=== PATIENT | male | born 2000 | race Caucasian/White ===

== ENCOUNTER 2020-03-22 17:16 | Emergency (ER) | payer OTHER, SELFPAY ==
[2020-03-22 17:18] VITALS: BP 96/61; PULSE 82; RESP 18; TEMP 36.6; O2SAT 100; BMI 23.8
--- NOTE | 2020-03-22 18:19 | CT_ITS ---
EXAMINATION: CT HEAD WITHOUT CONTRAST CT CERVICAL SPINE WITHOUT CONTRAST CLINICAL INFORMATION: EtOH. Unknown head hit. COMPARISON: CT head and cervical spine from 12/24/2019. TECHNIQUE: Contiguous axial imaging was performed from the skull base to vertex without intravenous administration of contrast. Contiguous axial imaging was performed from the upper chest through the skull base without intravenous administration of contrast. Coronal and sagittal reformats were obtained at the acquisition workstation. This CT examination was performed using dose optimization techniques as appropriate, variously including the following: *Automated exposure control. *Adjustment of mA and/or kV according to patient size (this includes techniques or standardized protocols for targeted exams where dose is matched to indication/reason for exam; i.e. extremities or head). *Use of iterative reconstruction technique. DLP: 1296 mGy-cm FINDINGS: Head: There is no evidence of acute intracranial hemorrhage or edematous territorial infarction. There is no abnormal attenuation within the brain parenchyma. Reyes-white matter differentiation is preserved. The ventricles are normal in size and configuration. No evidence for obstructive hydrocephalus. No abnormal mass effect or midline shift. No extra-axial fluid collections. No acute soft tissue or osseous abnormalities. The mastoid air cells and paranasal sinuses are clear. Cervical Spine: The cervical spine is held with right convex curvature. Reversal the normal cervical lordosis. Rightward rotary subluxation of C1 on C2. Otherwise, the atlantooccipital and atlantoaxial articulations remain well aligned. No evidence of acute fracture or subluxation. The vertebral body heights and disc spaces are maintained. There is no prevertebral soft tissue swelling. The thyroid gland and remaining cervical soft tissues are normal in appearance. The lung apices demonstrate no abnormalities. IMPRESSION: 1. No evidence of acute intracranial hemorrhage or edematous territorial infarction. 2. No evidence of acute fracture or traumatic subluxation of the cervical spine.
--- NOTE | 2020-03-22 18:28 | ED.ALCOHOL ---
HPI - Alcohol General Chief Complaint: ETOH/Substance Use <ROWENA Slade - Last Filed: 03/23/20 00:35> Stated Complaint: overdose <ROWENA Slade - Last Filed: 03/23/20 00:35> Time Seen by Provider: 03/22/20 18:14 <ROWENA Slade - Last Filed: 03/23/20 00:35> Source: EMS <ROWENA Slade - Last Filed: 03/23/20 00:35> Mode of arrival: EMS <ROWENA Slade - Last Filed: 03/23/20 00:35> History of Present Illness HPI narrative: 19-year-old male with a past medical history of alcohol abuse / dependence BIBA s/p found lying in a yard unresponsive with multiple empty nip bottles around him. unknown head trauma /fall or if additional substances abused history unobtainable at this time due to patient's intoxication <ROWENA Slade - Last Filed: 03/23/20 00:35> MD complaint: alcohol intoxication, alcohol withdrawal and alcohol dependence <ROWENA Slade - Last Filed: 03/23/20 00:35> Related Data Allergies/Adverse Reactions: Allergies Allergy/AdvReac Type Severity Reaction Status Date / Time Unable to Assess Allergy Unverified 03/22/20 18:19 <ROWENA Slade - Last Filed: 03/23/20 00:35> Review of Systems Review of Systems: Yes Unobtainable due to mental status ( intoxication) <ROWENA Slade - Last Filed: 03/23/20 00:35> FORMERLY [facility] Past Medical History Source: old records reviewed <ROWENA Slade - Last Filed: 03/23/20 00:35> Social History Social History: Social History Advance Directives: No Advance Directives Information Provided: No <ROWENA Slade - Last Filed: 03/23/20 00:35> Physical Exam Vital Signs: Vital Signs: Vital Signs Temp Pulse Resp BP Pulse Ox 03/22/20 22:00 98.0 F 70 20 110/60 97 03/22/20 20:25 97.5 F 74 20 101/45 L 97 03/22/20 19:58 75 16 102/47 L 100 03/22/20 17:18 98 F 82 18 96/61 100 Body Mass Index 23.8 <ROWENA Slade - Last Filed: 03/23/20 00:35> Vital Signs: Vital Signs Temp Pulse Resp BP Pulse Ox 03/22/20 22:00 98.0 F 70 20 110/60 97 03/22/20 20:25 97.5 F 74 20 101/45 L 97 03/22/20 19:58 75 16 102/47 L 100 03/22/20 17:18 98 F 82 18 96/61 100 Body Mass Index 23.8 <Krystal Angel MD - Last Filed: 03/23/20 03:18> Const: Other: ETOH odor on breath <ROWENA Slade - Last Filed: 03/23/20 00:35> Orientation/consciousness: Other orientation findings ( unresponsive painful and verbal stimuli) <ROWENA Slade - Last Filed: 03/23/20 00:35> HENMT: Other: atraumatic <ROWENA Slade - Last Filed: 03/23/20 00:35> Head: Yes normal to inspection <ROWENA Slade - Last Filed: 03/23/20 00:35> General nose exam: Normal external nose present <ROWENA Slade - Last Filed: 03/23/20 00:35> Face and sinus: Yes normal facial exam <ROWENA Slade - Last Filed: 03/23/20 00:35> Eyes: Pupils: Equal, round and reactive pupils present and Dilated pupils bilaterally <ROWENA Slade - Last Filed: 03/23/20 00:35> Neck: Neck: Yes normal visual inspection <ROWENA Slade - Last Filed: 03/23/20 00:35> Resp: Effort & Inspection: normal respiratory effort <ROWENA Slade - Last Filed: 03/23/20 00:35> Cardio: Rate: regular rate <ROWENA Slade - Last Filed: 03/23/20 00:35> GI: Inspection: Yes normal to inspection <ROWENA Slade - Last Filed: 03/23/20 00:35> Palpation (GI): Soft to palpation <ROWENA Slade - Last Filed: 03/23/20 00:35> Skin: Wounds: no wounds <ROWENA Slade - Last Filed: 03/23/20 00:35> Neuro: Cranial nerves: Yes Equal, round and reactive pupils present <ROWENA Slade - Last Filed: 03/23/20 00:35> Extrem: General: Yes normal to inspection <ROWENA Slade - Last Filed: 03/23/20 00:35> Course Course Course Narrative: - head CT /C-spine without evidence of acute pathology - ethanol elevated at 333, OSORIO positive for marijuana, labs otherwise at patient's baseline lipase pending -2326-- lipase 152. Patient is still sleeping comfortably in the ED -0200-- ED care transferred to pending clinical sobriety <ROWENA Slade - Last Filed: 03/23/20 00:35> MDM - Alcohol MDM Narrative Medical decision making narrative: 19-year-old male with a past medical history of alcohol abuse / dependence BIBA s/p found lying in a yard unresponsive with multiple empty nip bottles around him. On exam VSS, unresponsive to sternal rub. ETOH odor on breath. After arrival patient got out of bed, unsteady on feet, denied ETOH use. unknown head trauma/ clear history Plan: Labs, head/ C-spine CT, IVF, observe and recent assess for clinical sobriety <ROWENA Slade - Last Filed: 03/23/20 00:35> Lab Data Result diagrams: : 03/22/20 18:53 03/22/20 18:53 <ROWENA Slade - Last Filed: 03/23/20 00:35> Labs: Lab Results 03/22/20 03/22/20 03/22/20 Range/Units 18:53 18:53 18:53 WBC (4.8-10.8) X10*3/uL RBC (4.60-5.80) X10*6/uL Hgb (14.0-18.0) g/dl Hct (42-52) % MCV (80-98) fL MCH (27.0-33.0) pg MCHC (31.0-36.0) g/dl RDW (11.0-16.0) % Plt Count (160-400) X10*3/uL MPV (9.4-12.4) fL Immature Gran % (Auto) (0.0-0.4) % Neut % (Auto) (45-73) % Lymph % (Auto) (20-40) % Graves % (Auto) (2-11) % Eos % (Auto) (0-4) % Baso % (Auto) (0-2) % Lymph # (Auto) (1.2-4.9) X10*3/uL Graves # (Auto) (0.1-1.2) X10*3/uL Eos # (Auto) (0.0-0.4) X10*3/uL Baso # (Auto) (0.0-0.2) X10*3/uL Abs Immat Gran (auto) (0.00-0.03) X10*3/uL Absolute Neuts (auto) (2.0-8.3) X10*3/uL Absolute Nucleated RBC (0.0-0.012) X10*3/uL Nucleated RBC % (auto) (0.0-0.2) /100WBC Hold Blue Top SEE NOTE Sodium (135-145) mmol/L Potassium (3.3-5.1) mmol/l Chloride (96-108) mmol/L Carbon Dioxide (22-29) mmol/L Anion Gap (12-20) BUN (9-16) mg/dL Creatinine (0.5-1.4) mg/dL Estim Creat Clear Calc Estimated GFR Random Glucose (60-115) mg/dL Calcium (8.4-10.2) mg/dL Magnesium (1.6-2.6) mg/dL Total Bilirubin (0.0-1.0) mg/dL Direct Bilirubin (0.0-0.5) mg/dL AST (5-37) U/L ALT (0-40) U/L Alkaline Phosphatase (39-117) U/L Total Protein (6.5-8.0) g/dL Albumin (3.5-5.0) g/dL Lipase 152 H (8-78) U/L Urine Opiates Screen (Not Detect) Ur Barbiturates Screen (Not Detect) Ur Phencyclidine Scrn (Not Detect) Ur Amphetamines Screen (Not Detect) U Benzodiazepines Scrn (Not Detect) Urine Cocaine Screen (Not Detect) U Marijuana (THC) Screen (Not Detect) Ethyl Alcohol 333 H* mg/dL 03/22/20 03/22/20 03/22/20 Range/Units 18:53 18:53 18:53 WBC 6.7 (4.8-10.8) X10*3/uL RBC 4.48 L (4.60-5.80) X10*6/uL Hgb 15.0 (14.0-18.0) g/dl Hct 43.6 (42-52) % MCV 97.3 (80-98) fL MCH 33.5 H (27.0-33.0) pg MCHC 34.4 (31.0-36.0) g/dl RDW 11.5 (11.0-16.0) % Plt Count 286 (160-400) X10*3/uL MPV 8.7 L (9.4-12.4) fL Immature Gran % (Auto) 0.1 (0.0-0.4) % Neut % (Auto) 68.0 (45-73) % Lymph % (Auto) 24.2 (20-40) % Graves % (Auto) 5.2 (2-11) % Eos % (Auto) 2.1 (0-4) % Baso % (Auto) 0.4 (0-2) % Lymph # (Auto) 1.6 (1.2-4.9) X10*3/uL Graves # (Auto) 0.4 (0.1-1.2) X10*3/uL Eos # (Auto) 0.1 (0.0-0.4) X10*3/uL Baso # (Auto) 0.0 (0.0-0.2) X10*3/uL Abs Immat Gran (auto) 0.01 (0.00-0.03) X10*3/uL Absolute Neuts (auto) 4.6 (2.0-8.3) X10*3/uL Absolute Nucleated RBC 0.000 (0.0-0.012) X10*3/uL Nucleated RBC % (auto) 0.0 (0.0-0.2) /100WBC Hold Blue Top Sodium 146 H (135-145) mmol/L Potassium 3.8 (3.3-5.1) mmol/l Chloride 109 H (96-108) mmol/L Carbon Dioxide 29 (22-29) mmol/L Anion Gap 12 (12-20) BUN 4 L (9-16) mg/dL Creatinine 0.99 (0.5-1.4) mg/dL Estim Creat Clear Calc 129.5 Estimated GFR > 60 Random Glucose 98 (60-115) mg/dL Calcium 9.1 (8.4-10.2) mg/dL Magnesium 2.6 (1.6-2.6) mg/dL Total Bilirubin 0.4 (0.0-1.0) mg/dL Direct Bilirubin 0.2 (0.0-0.5) mg/dL AST 12 (5-37) U/L ALT 10 (0-40) U/L Alkaline Phosphatase 73 (39-117) U/L Total Protein 7.4 (6.5-8.0) g/dL Albumin 4.7 (3.5-5.0) g/dL Lipase (8-78) U/L Urine Opiates Screen Not Detected (Not Detect) Ur Barbiturates Screen Not Detected (Not Detect) Ur Phencyclidine Scrn Not Detected (Not Detect) Ur Amphetamines Screen Not Detected (Not Detect) U Benzodiazepines Scrn Not Detected (Not Detect) Urine Cocaine Screen Not Detected (Not Detect) U Marijuana (THC) Screen POSITIVE H (Not Detect) Ethyl Alcohol mg/dL <ROWENA Slade - Last Filed: 03/23/20 00:35> Lab Results 03/22/20 03/22/20 03/22/20 Range/Units 18:53 18:53 18:53 WBC (4.8-10.8) X10*3/uL RBC (4.60-5.80) X10*6/uL Hgb (14.0-18.0) g/dl Hct (42-52) % MCV (80-98) fL MCH (27.0-33.0) pg MCHC (31.0-36.0) g/dl RDW (11.0-16.0) % Plt Count (160-400) X10*3/uL MPV (9.4-12.4) fL Immature Gran % (Auto) (0.0-0.4) % Neut % (Auto) (45-73) % Lymph % (Auto) (20-40) % Graves % (Auto) (2-11) % Eos % (Auto) (0-4) % Baso % (Auto) (0-2) % Lymph # (Auto) (1.2-4.9) X10*3/uL Graves # (Auto) (0.1-1.2) X10*3/uL Eos # (Auto) (0.0-0.4) X10*3/uL Baso # (Auto) (0.0-0.2) X10*3/uL Abs Immat Gran (auto) (0.00-0.03) X10*3/uL Absolute Neuts (auto) (2.0-8.3) X10*3/uL Absolute Nucleated RBC (0.0-0.012) X10*3/uL Nucleated RBC % (auto) (0.0-0.2) /100WBC Hold Blue Top SEE NOTE Sodium (135-145) mmol/L Potassium (3.3-5.1) mmol/l Chloride (96-108) mmol/L Carbon Dioxide (22-29) mmol/L Anion Gap (12-20) BUN (9-16) mg/dL Creatinine (0.5-1.4) mg/dL Estim Creat Clear Calc Estimated GFR Random Glucose (60-115) mg/dL Calcium (8.4-10.2) mg/dL Magnesium (1.6-2.6) mg/dL Total Bilirubin (0.0-1.0) mg/dL Direct Bilirubin (0.0-0.5) mg/dL AST (5-37) U/L ALT (0-40) U/L Alkaline Phosphatase (39-117) U/L Total Protein (6.5-8.0) g/dL Albumin (3.5-5.0) g/dL Lipase 152 H (8-78) U/L Urine Opiates Screen (Not Detect) Ur Barbiturates Screen (Not Detect) Ur Phencyclidine Scrn (Not Detect) Ur Amphetamines Screen (Not Detect) U Benzodiazepines Scrn (Not Detect) Urine Cocaine Screen (Not Detect) U Marijuana (THC) Screen (Not Detect) Ethyl Alcohol 333 H* mg/dL 03/22/20 03/22/20 03/22/20 Range/Units 18:53 18:53 18:53 WBC 6.7 (4.8-10.8) X10*3/uL RBC 4.48 L (4.60-5.80) X10*6/uL Hgb 15.0 (14.0-18.0) g/dl Hct 43.6 (42-52) % MCV 97.3 (80-98) fL MCH 33.5 H (27.0-33.0) pg MCHC 34.4 (31.0-36.0) g/dl RDW 11.5 (11.0-16.0) % Plt Count 286 (160-400) X10*3/uL MPV 8.7 L (9.4-12.4) fL Immature Gran % (Auto) 0.1 (0.0-0.4) % Neut % (Auto) 68.0 (45-73) % Lymph % (Auto) 24.2 (20-40) % Graves % (Auto) 5.2 (2-11) % Eos % (Auto) 2.1 (0-4) % Baso % (Auto) 0.4 (0-2) % Lymph # (Auto) 1.6 (1.2-4.9) X10*3/uL Graves # (Auto) 0.4 (0.1-1.2) X10*3/uL Eos # (Auto) 0.1 (0.0-0.4) X10*3/uL Baso # (Auto) 0.0 (0.0-0.2) X10*3/uL Abs Immat Gran (auto) 0.01 (0.00-0.03) X10*3/uL Absolute Neuts (auto) 4.6 (2.0-8.3) X10*3/uL Absolute Nucleated RBC 0.000 (0.0-0.012) X10*3/uL Nucleated RBC % (auto) 0.0 (0.0-0.2) /100WBC Hold Blue Top Sodium 146 H (135-145) mmol/L Potassium 3.8 (3.3-5.1) mmol/l Chloride 109 H (96-108) mmol/L Carbon Dioxide 29 (22-29) mmol/L Anion Gap 12 (12-20) BUN 4 L (9-16) mg/dL Creatinine 0.99 (0.5-1.4) mg/dL Estim Creat Clear Calc 129.5 Estimated GFR > 60 Random Glucose 98 (60-115) mg/dL Calcium 9.1 (8.4-10.2) mg/dL Magnesium 2.6 (1.6-2.6) mg/dL Total Bilirubin 0.4 (0.0-1.0) mg/dL Direct Bilirubin 0.2 (0.0-0.5) mg/dL AST 12 (5-37) U/L ALT 10 (0-40) U/L Alkaline Phosphatase 73 (39-117) U/L Total Protein 7.4 (6.5-8.0) g/dL Albumin 4.7 (3.5-5.0) g/dL Lipase (8-78) U/L Urine Opiates Screen Not Detected (Not Detect) Ur Barbiturates Screen Not Detected (Not Detect) Ur Phencyclidine Scrn Not Detected (Not Detect) Ur Amphetamines Screen Not Detected (Not Detect) U Benzodiazepines Scrn Not Detected (Not Detect) Urine Cocaine Screen Not Detected (Not Detect) U Marijuana (THC) Screen POSITIVE H (Not Detect) Ethyl Alcohol mg/dL <Krystal Angel MD - Last Filed: 03/23/20 03:18> Discharge Plan Discharge Clinical Impression: Alcoholic intoxication <ROWENA Slade - Last Filed: 03/23/20 00:35> Patient Disposition: Home, Self-Care <ROWENA Slade - Last Filed: 03/23/20 00:35> Instructions: Abuse of Alcohol (ED) <ROWENA Slade - Last Filed: 03/23/20 00:35> Additional Instructions: do not drink alcohol or take drugs aching kill you Follow up with her doctor Stay hydrated at home <ROWENA Slade - Last Filed: 03/23/20 00:35> Referrals: Physician,Unknown [Primary Care Provider] - 2 days ( your primary care doctor) <ROWENA Slade - Last Filed: 03/23/20 00:35> Interventions: ED Discharge Assessment Last Done: 03/23/20 02:31 <ROWENA Slade - Last Filed: 03/23/20 00:35> Discharge Date/Time: 03/23/20 02:15 <ROWENA Slade - Last Filed: 03/23/20 00:35>
[2020-03-22] MEDS: 0.9 % Sodium Chloride 1,000 ML 999 ML IVCONT (18:55)
[2020-03-22 19:02] LABS: MANUAL DIFF FLAG NO
[2020-03-22 19:03] LABS: Basophils Percent Auto 0.4 % (0-2); Eosinophils Absolute Auto 0.1 X10*3/uL (0.0-0.4); Eosinophils Percent Auto 2.1 % (0-4); Hematocrit 43.6 % (42-52); Imm Gran Abs Auto 0.01 X10*3/uL (0.00-0.03); Imm Gran Pct Auto 0.1 % (0.0-0.4); Lymphocytes Absolute Auto 1.6 X10*3/uL (1.2-4.9); Lymphocytes Percent Auto 24.2 % (20-40); Mean Corpuscular HGB Conc 34.4 g/dl (31.0-36.0); Mean Corpuscular Hemoglobin 33.5 pg (27.0-33.0); Mean Corpuscular Volume 97.3 fL (80-98); Mean Platelet Volume 8.7 fL (9.4-12.4); Monocytes Absolute Auto 0.4 X10*3/uL (0.1-1.2); Monocytes Percent Auto 5.2 % (2-11); Neutrophils Absolute Auto 4.6 X10*3/uL (2.0-8.3); Platelet Count 286 X10*3/uL (160-400); Red Blood Count 4.48 X10*6/uL (4.60-5.80); Red Cell Distribution Width 11.5 % (11.0-16.0); White Blood Count 6.7 X10*3/uL (4.8-10.8)
[2020-03-22 19:22] LABS: Ethanol 333 mg/dL
[2020-03-22 19:29] LABS: Amphetamine Screen Urine Not Detected (Not Detect); Barbiturates, Urine Not Detected (Not Detect); Benzodiazepines Screen Urine Not Detected (Not Detect); Cannabinoid Screen Urine POSITIVE (Not Detect); Cocaine Screen Urine Not Detected (Not Detect); Opiate Screen Urine Not Detected (Not Detect); Phencyclidine Screen Urine Not Detected (Not Detect)
[2020-03-22 19:34] LABS: Alanine Aminotransferase 10 U/L (0-40); Albumin Level 4.7 g/dL (3.5-5.0); Alkaline Phosphatase 73 U/L (39-117); Anion Gap 12 (12-20); Aspartate Amino Transferase 12 U/L (5-37); Bilirubin Direct 0.2 mg/dL (0.0-0.5); Bilirubin Total 0.4 mg/dL (0.0-1.0); Blood Urea Nitrogen 4 mg/dL (9-16); Calcium 9.1 mg/dL (8.4-10.2); Carbon Dioxide 29 mmol/L (22-29); Chloride 109 mmol/L (96-108); Creatinine Clr Calc Pharmacy 129.5; Estimated Glomerular Filt Rate > 60; Glucose Random 98 mg/dL (60-115); Magnesium 2.6 mg/dL (1.6-2.6); Potassium 3.8 mmol/l (3.3-5.1); Sodium 146 mmol/L (135-145); Total Protein 7.4 g/dL (6.5-8.0)
[2020-03-22 19:57] LABS: Lipase 152 U/L (8-78)
[2020-03-22 19:58] VITALS: BP 102/47; PULSE 75; RESP 16; O2SAT 100
--- NOTE | 2020-03-22 20:24 | PC.NURSE ---
RN MADE AWARE PT HYPERTENSIVE, PT STATES DID NOT TAKE HOME MEDS TODAY, SPK W/TISH WILL ORDER HOME MEDS. PT AWARE OF PLAN OF CARE W/NO QUESTIONS ON ASSESSMENT THIS RN NOTES BILATERAL BRUISING TO FACE UNDER EYES, W/ SMALL LAC TO UPPER NOSE. PT STATES SHE FELL IN BATHROOM AT HOME TODAY. DENIES LOC. ALL NEUROS INTACT
[2020-03-22 20:25] VITALS: BP 101/45; PULSE 74; RESP 20; TEMP 36.4; O2SAT 97
[2020-03-22 22:00] VITALS: BP 110/60; PULSE 70; RESP 20; TEMP 36.7; O2SAT 97
--- NOTE | 2020-03-22 23:39 | PC.NURSE ---
PT REMAINS ASLEEP AT THIS TIME, RESP EVEN & UNLABORED, PT RESPONDS TO VERBAL STIMULI WHICH IS AN IMPROVEMENT OPPOSE TO @ APPROX 1900 PT WAS ONLY RESPONSIVE TO STERNAL RUB. VS HAVE BEEN WNL. PT OFFERED SOMETHING TO DRINK AND DECLINED. 1 EPISODE OF URINARY INCONTINENCE, PT WAS CLEANED AND BEDDING CHANGED. WILL CONTINUE TO MONITOR, PT TO BE DISCHARGED WHEN CLINICALLY SOBER
== END 2020-03-23 02:15 | disposition home or self-care (01) ==
PROVIDERS: Physician Assistant; Emergency Provider Student in an Organized Health Care Education/Training Program
DX: F10.120 Alcohol abuse with intoxication, uncomplicated (principal); Y90.8 Blood alcohol level of 240 mg/100 ml or more
CPT/HCPCS: 36415; 70450; 72125; 80048; 80076; 80307; 80320; 83690; 83735; 85025; 96360; 99284

== ENCOUNTER 2020-05-04 19:32 | Emergency (ER) | payer OTHER, SELFPAY ==
[2020-05-04 20:02] VITALS: BMI 22.1
--- NOTE | 2020-05-04 20:08 | PC.NURSE ---
PATIENT REPEATEDLY ASKING WHEN CAN I LEAVE DUDE? THIS IS BULLSHIT! I'M NOT STAYING DUDE. FUCK ALL OF YOU . AWAITING ED PROVIDER EVALUATION. PATIENT REPEATEDLY EXPRESSING FRUSTRATION WITH BEING BROUGHT TO HOSPITAL, BUT REFUSING TO SPEAK TO THIS RN AT THIS TIME. PER EMS, PATIENT'S AUNT CALLED 911 FOR ALCOHOL AND BEING EMOTIONALLY DISTRESSED .
--- NOTE | 2020-05-04 20:23 | PC.NURSE ---
PATIENT YELLING AND TALKING TO SELF IN ED BH2 AT THIS TIME. AMBULATING WITH STEADY GAIT, HAS ATTEMPTED TO LEAVE MULTIPLE TIMES THROUGH LOCKED DOORS. SECURITY AWARE & PRESENT. PT NEEDS FREQUENT REDIRECTION, IS IRRITATED BUT RE-DIRECTABLE AT THIS TIME. STATES I GOTTA WORK TOMORROW DUDE! WHERE'S MY ALCOHOL AND MY CARGO PANTS? MULTIPLE TIMES. PATIENT QUESTIONS/STATEMENTS REPEATEDLY ANSWERED BY THIS RN. PT OTHERWISE REFUSING TO SPEAK TO THIS RN REGARDING EMOTIONAL DISTRESS OR ETOH USE STATED BY EMS REPORT. PT STATES NO QUESTIONS! I'M NOT ANSWERING QUESTIONS! AWAITING PROVIDER EVALUATION BY MATHEW FIGUEREDO. WILL CONTINUE TO MONITOR.
--- NOTE | 2020-05-04 20:39 | PC.NURSE ---
PATIENT INTERMITTENTLY TEARFUL AND EXPRESSING FRUSTRATIONS OVER BEING IN THE EMERGENCY DEPARTMENT. OFFERED SANDWICH AND WATER, CURRENTLY COOPERATING WITH STAFF, ESPECIALLY EDISON LOMELI AT THIS TIME. CONTINUES TO REFUSE VITAL SIGNS OR ANSWERING QUESTIONS TO THIS RN. WILL CONTINUE TO MONITOR.
[2020-05-04 20:57] LABS: Amphetamine Screen Urine Not Detected (Not Detect); Barbiturates, Urine Not Detected (Not Detect); Benzodiazepines Screen Urine Not Detected (Not Detect); Cannabinoid Screen Urine POSITIVE (Not Detect); Cocaine Screen Urine Not Detected (Not Detect); Opiate Screen Urine Not Detected (Not Detect); Phencyclidine Screen Urine Not Detected (Not Detect)
--- NOTE | 2020-05-04 20:58 | ED_ITS ---
HPI - Alcohol General Chief Complaint: ETOH/Substance Use Stated Complaint: ETOH Time Seen by Provider: 05/04/20 21:27 Source: EMS Mode of arrival: EMS Limitations: altered mental status History of Present Illness HPI narrative: 19-year-old male presents via EMS for ETOH intoxication and suicidal ideation Reported by family. Patient states that he drinks alcohol every single day and if he does not he goes in to withdrawals. EMS reports that he was drinking nips on the way to the hospital. They tried to remove the all call from him however they were unable to prevent him from drinking more. By family members that he has been found in multiple locations passed out due to alcohol intoxication, and has made vague suicidal statements to family members. Patient is clearly intoxicated, is having mood swings goes from crying to anger in the same sentence. Patient does not report any concerns at this time. MD complaint: alcohol intoxication and alcohol dependence Last drink: Hours (ago) Chronic alcohol use: Yes Previous visits for alcohol intoxication: Yes Associated symptoms: depression and suicidality Treatments prior to arrival: none Related Data Allergies Allergy/AdvReac Type Severity Reaction Status Date / Time No Known Allergies Allergy Verified 05/04/20 22:33 Review of Systems Review of Systems: ROS unable to be obtained due to altered mental status Yes Unobtainable due to mental status ( Acute alcohol intoxication) [facility] Past Medical History Attestation statement: The following information was validated with the patient. Social History Social History Advance Directives: No Advance Directives Information Provided: Yes Physical Exam Vital Signs: Vital Signs: Last Vital Signs Temp 97.8 F 05/04/20 23:35 Pulse 85 05/04/20 23:35 Resp 16 05/04/20 23:35 BP 109/68 05/04/20 23:35 Pulse Ox 98 05/04/20 23:35 Body Mass Index 22.1 Appearance: Alert. Oriented X3. moderate distress secondary to acute alcohol intoxication Eyes: Pupils equal, round and reactive to light. ENT: Pharynx normal. Neck: Normal inspection. Neck supple. CVS: Normal heart rate and rhythm. Pulses normal. Respiratory: No respiratory distress. Breath sounds normal. Abdomen: Soft and nontender. Skin: Skin warm and dry. Normal skin color. Normal skin turgor. Extremities: No lower extremity edema. Neuro: No motor deficit. No sensory deficit. Course Course Course Narrative: 19-year-old male presents with acute alcohol intoxication. Family has significant concerns regarding his safety, he has been found passed out In various locations of [place] under the influence of alcohol and marijuana multiple times. he has made some vague suicidal ideations. During my conversation with him, his moods were unstable, crying 1 minutes about how desperate he feels for help with his alcohol addiction, then stating that he wants to leave because he needs to drink more, stating that nobody can help him and that he needs to help himself but he can not. He reports that he has alcohol on a daily basis and if he does not drink every day he has tremors. We will give Ativan 2 mg to help with his anxiety. I do not feel he is in with drawal at this time if he is visibly intoxicated. ETOH 133, tox screen positive for marijuana. At this time I do not feel this patient is safe to go home, section [address] N consult completed at 4:22 a.m., they stated that family wants to Section 35 him and will do so in the morning. Section [address] to keep patient at this facility so he is safe. MDM - Alcohol Differential Diagnosis Differential diagnosis: Likely alcohol dependence and alcohol withdrawal delirium Medical Records Attestation: I reviewed the patient's medical records. Lab Data Attestation: I reviewed the patient's lab results. Result diagrams: 05/05/20 02:40 Labs: Lab Results 05/04/20 05/04/20 05/05/20 Range/Units 20:18 20:30 02:40 WBC 9.4 (4.8-10.8) X10*3/uL RBC 4.61 (4.60-5.80) X10*6/uL Hgb 15.8 (14.0-18.0) g/dl Hct 43.4 (42-52) % MCV 94.1 (80-98) fL MCH 34.3 H (27.0-33.0) pg MCHC 36.4 H (31.0-36.0) g/dl RDW 11.5 (11.0-16.0) % Plt Count 330 (160-400) X10*3/uL MPV 8.6 L (9.4-12.4) fL Immature Gran % (Auto) 0.2 (0.0-0.4) % Neut % (Auto) 56.7 (45-73) % Lymph % (Auto) 30.7 (20-40) % [place] % (Auto) 10.2 (2-11) % Eos % (Auto) 2.0 (0-4) % Baso % (Auto) 0.2 (0-2) % Lymph # (Auto) 2.9 (1.2-4.9) X10*3/uL [place] # (Auto) 1.0 (0.1-1.2) X10*3/uL Eos # (Auto) 0.2 (0.0-0.4) X10*3/uL Baso # (Auto) 0.0 (0.0-0.2) X10*3/uL Abs Immat Gran (auto) 0.02 (0.00-0.03) X10*3/uL Absolute Neuts (auto) 5.3 (2.0-8.3) X10*3/uL Absolute Nucleated RBC 0.000 (0.0-0.012) X10*3/uL Nucleated RBC % (auto) 0.0 (0.0-0.2) /100WBC Urine Color YELLOW Urine Appearance CLEAR Urine pH 6.5 (5.0-8.0) Ur Specific [place] <= 1.005 (1.005-1.025) Urine Protein NEG (NEG-TRACE) MG/DL Urine Glucose (UA) NEG (NEG) MG/DL Urine Ketones NEG (NEG) MG/DL Urine Blood NEG (NEG) Urine Nitrite NEG (NEG) Ur Leukocyte Esterase NEG (NEG) Urine RBC 0 (0) /HPF Urine WBC 0 (0-4) /HPF Ur Squamous Epith Cells NONE /LPF Urine Bacteria NONE /LPF Urine Opiates Screen Not Detected (Not Detect) Ur Barbiturates Screen Not Detected (Not Detect) Ur Phencyclidine Scrn Not Detected (Not Detect) Ur Amphetamines Screen Not Detected (Not Detect) U Benzodiazepines Scrn Not Detected (Not Detect) Urine Cocaine Screen Not Detected (Not Detect) U Marijuana (THC) Screen POSITIVE H (Not Detect) Ethyl Alcohol mg/dL 05/05/20 Range/Units 02:40 WBC (4.8-10.8) X10*3/uL RBC (4.60-5.80) X10*6/uL Hgb (14.0-18.0) g/dl Hct (42-52) % MCV (80-98) fL MCH (27.0-33.0) pg MCHC (31.0-36.0) g/dl RDW (11.0-16.0) % Plt Count (160-400) X10*3/uL MPV (9.4-12.4) fL Immature Gran % (Auto) (0.0-0.4) % Neut % (Auto) (45-73) % Lymph % (Auto) (20-40) % [place] % (Auto) (2-11) % Eos % (Auto) (0-4) % Baso % (Auto) (0-2) % Lymph # (Auto) (1.2-4.9) X10*3/uL [place] # (Auto) (0.1-1.2) X10*3/uL Eos # (Auto) (0.0-0.4) X10*3/uL Baso # (Auto) (0.0-0.2) X10*3/uL Abs Immat Gran (auto) (0.00-0.03) X10*3/uL Absolute Neuts (auto) (2.0-8.3) X10*3/uL Absolute Nucleated RBC (0.0-0.012) X10*3/uL Nucleated RBC % (auto) (0.0-0.2) /100WBC Urine Color Urine Appearance Urine pH (5.0-8.0) Ur Specific [place] (1.005-1.025) Urine Protein (NEG-TRACE) MG/DL Urine Glucose (UA) (NEG) MG/DL Urine Ketones (NEG) MG/DL Urine Blood (NEG) Urine Nitrite (NEG) Ur Leukocyte Esterase (NEG) Urine RBC (0) /HPF Urine WBC (0-4) /HPF Ur Squamous Epith Cells /LPF Urine Bacteria /LPF Urine Opiates Screen (Not Detect) Ur Barbiturates Screen (Not Detect) Ur Phencyclidine Scrn (Not Detect) Ur Amphetamines Screen (Not Detect) U Benzodiazepines Scrn (Not Detect) Urine Cocaine Screen (Not Detect) U Marijuana (THC) Screen (Not Detect) Ethyl Alcohol 133 mg/dL Discharge Plan Discharge Clinical Impression: Alcohol abuse Alcoholic intoxication Qualifiers: Complication of substance-induced condition: uncomplicated Qualified Code(s): F10.920 - Alcohol use, unspecified with intoxication, uncomplicated
[2020-05-04 21:01] LABS: Glucose Urine UA NEG (NEG); Leukocyte Esterase Urine NEG (NEG); Nitrite Urine NEG (NEG); PH 6.5 (5.0-8.0); Specific Gravity - Urine <= 1.005 (1.005-1.025); Urine Blood NEG (NEG); Urine Ketones NEG (NEG); Urine Protein NEG (NEG-TRACE)
--- NOTE | 2020-05-04 21:01 | PC.NURSE ---
PATIENT EVALUATED BY MATHEW FIGUEREDO. PROVIDER TO ORDER ATIVAN 2MG PO, TO BE ADMINISTERED.
[2020-05-04] MEDS: LORazepam 1 MG TABLET 2 MG PO (21:07)
--- NOTE | 2020-05-04 21:08 | PC.NURSE ---
DORA (BILINGUAL SALES REPRESENTATIVE) AT BEDSIDE SPEAKING WITH PATIENT.
[2020-05-04 21:13] LABS: Appearance Urine CLEAR; Color Urine YELLOW
--- NOTE | 2020-05-04 21:30 | PC.NURSE ---
PLANNED FOR PATIENT DISCHARGE, PER DORA (ECONOMETRICS PROFESSOR) AND TERELL (ED PROVIDER), IF ABLE TO FIND SAFE RIDE HOME. PATIENT GAVE THIS RN HIS GIRLFRIEND'S (GRANT) NUMBER: [phone], BUT UNABLE TO REACH OR LEAVE VOICEMAIL. PT THEN GAVE THIS RN HIS MOTHER'S NUMBER: [phone]. PATIENT'S MOTHER STATES I'M NOT PICKING HIM UP. I WANT HIM TO STAY AND GET SOME HELP. HE'S STILL DRUNK AND HIS AUNT AND COUSIN SAID THAT HE WAS THREATENING TO KILL HIMSELF, AND I'M AFRAID THAT IF HE LEAVES NOW, HE'S GONNA HURT HIMSELF. PATIENT DENIES SI/HI TO THIS RN AND OTHER HOSPITAL STAFF MEMBERS, BUT THREATENED SUICIDE TO FAMILY MEMBERS, WITH NO SPECIFIC PLAN. PATIENT STATES I'M NOT SUICIDAL! I MAKE MONEY, AND I LOVE MY LIFE, I LOVE MY MENTAL HEALTH, I LOVE EVERYTHING ABOUT ME! I HAVE NO REASON TO KILL MYSELF, THAT'S JUST STUPID! PATIENT THEN BECAME AGITATED AFTER SPEAKING WITH HIS MOTHER, STATING SHE'S NOT MY MOM, SHE'S MY MOTHER. ASK HER WHERE I WAS BORN! ASK HER! RNs SHYANN AND CALLI ABLE TO DE-ESCALATE PATIENT, WITH HELP OF EDISON LOMELI. PER SHAHLA MCCURDY, CALLI SPOKE WITH PATIENT'S COUSIN (EDWIN) WHO ALSO REQUESTED THAT HE REMAIN IN ED FOR FURTHER EVALUATION FOR SUICIDAL STATEMENTS AND ALCOHOL ABUSE. WHEN PATIENT WAS NOTIFIED OF THIS, PATIENT OKAY WITH PLAN TO REMAIN IN ED UNTIL BHN EVALUATION DUE TO HIS COUSIN'S CONCERNS. REMAINED CALM/COOPERATIVE, RETURNED TO EDBH2 ROOM. NO LONGER AGITATED WITH STAFF AT THIS TIME. THIS RN THEN SPOKE WITH MATHEW FIGUEREDO, SECTION [address] PLAN FOR BHN EVALUATION.
[2020-05-04 22:26] VITALS: RESP 18
[2020-05-04 22:29] LABS: RBC Urine 0 /HPF (0); WBC Urine 0 /HPF (0-4)
--- NOTE | 2020-05-04 23:31 | PC.NURSE ---
PATIENT CALM/COOPERATIVE AT THIS TIME. AWARE OF PLAN FOR BHN EVALUATION. WILL CONTINUE TO MONITOR.
[2020-05-04 23:35] VITALS: BP 109/68; PULSE 85; RESP 16; TEMP 36.6; O2SAT 98
--- NOTE | 2020-05-04 23:40 | PC.NURSE ---
PATIENT REFUSED BLOOD DRAW. STATES I HATE NEEDLES. I'M AFRAID OF THEM. BUT I'LL JUST STAY HERE UNTIL I TALK TO N. PROVIDER NOTIFIED.
--- NOTE | 2020-05-04 23:44 | PC.NURSE ---
PATIENT REFUSED BLOOD DRAW AT THIS TIME. PATIENT WANTS TO TALK TO N AND THINKS HE WILL BE ALLOWED TO GO HOME. STAFF ADVISED TO ALLOW LABS AND AGREED TO DO THEM IN THE MORNING. PT APPEARS CALM AND IS COOPERATIVE AT THIS TIME.
--- NOTE | 2020-05-05 01:59 | PC.NURSE ---
PATIENT CONTINUES TO REFUSE LAB DRAW. SLEEPING AT THIS TIME. RESPIRATIONS EVEN/UNLABORED. WILL CONTINUE TO MONITOR. AWAITING N EVALUATION.
--- NOTE | 2020-05-05 02:43 | PC.NURSE ---
PATIENT CONSENTED TO LAB DRAW AT THIS TIME. PLAN FOR [facility] TO EVALUATE PATIENT AFTER RECEIVING LAB RESULTS. LABS DRAWN AND SENT FOR ANALYSIS, AWAITING RESULTS.
[2020-05-05 02:45] LABS: MANUAL DIFF FLAG NO
[2020-05-05 02:47] LABS: Basophils Percent Auto 0.2 % (0-2); Eosinophils Absolute Auto 0.2 X10*3/uL (0.0-0.4); Hematocrit 43.4 % (42-52); Hemoglobin 15.8 g/dl (14.0-18.0); Imm Gran Abs Auto 0.02 X10*3/uL (0.00-0.03); Imm Gran Pct Auto 0.2 % (0.0-0.4); Lymphocytes Absolute Auto 2.9 X10*3/uL (1.2-4.9); Lymphocytes Percent Auto 30.7 % (20-40); Mean Corpuscular HGB Conc 36.4 g/dl (31.0-36.0); Mean Corpuscular Hemoglobin 34.3 pg (27.0-33.0); Mean Corpuscular Volume 94.1 fL (80-98); Mean Platelet Volume 8.6 fL (9.4-12.4); Monocytes Percent Auto 10.2 % (2-11); Neutrophils Absolute Auto 5.3 X10*3/uL (2.0-8.3); Neutrophils Percent Auto 56.7 % (45-73); Platelet Count 330 X10*3/uL (160-400); Red Blood Count 4.61 X10*6/uL (4.60-5.80); Red Cell Distribution Width 11.5 % (11.0-16.0); White Blood Count 9.4 X10*3/uL (4.8-10.8)
[2020-05-05 03:15] LABS: Ethanol 133 mg/dL
--- NOTE | 2020-05-05 03:36 | PC.NURSE ---
BHN AT BEDSIDE EVALUATING PATIENT. PATIENT IS CALM/COOPERATIVE WITH STAFF AT THIS TIME. WILL CONTINUE TO MONITOR.
--- NOTE | 2020-05-05 03:56 | PC.NURSE ---
PATIENT PROVIDED THIS RN WITH HIS COUSIN (ISAÍAS)'S PHONE NUMBER: [phone]. PATIENT STATES THAT ISAÍAS IS EDWIN'S BROTHER. SEE PREVIOUS NOTE REGARDING EDWIN. PATIENT STATES THAT HE DOES NOT KNOW HIS AUNT OR COUSIN EDWIN'S PHONE NUMBERS BY MEMORY.
--- NOTE | 2020-05-05 04:37 | PC.NURSE ---
PER [facility], [facility] STAFF MEMBER SPOKE WITH PATIENT'S FATHER (MIGUEL) @ [phone]. MIGUEL STATES I WILL SECTION 35 THE PATIENT IN THE MORNING, BUT DON'T TELL HIM BECAUSE THEN HE'LL TRY TO ESCAPE TO [facility] STAFF MEMBER. [address], WILL BE SECTION 35 IN MORNING. WILL CONTINUE TO MONITOR.
--- NOTE | 2020-05-05 07:17 | PC.NURSE ---
Report received from SHAHLA Zhang. Pt resting in room, resp unlabored.
[2020-05-05 07:52] VITALS: BP 121/74; PULSE 92; RESP 17; TEMP 37.1; O2SAT 96
[2020-05-05 07:55] VITALS: RESP 20
--- NOTE | 2020-05-05 08:47 | PC.NURSE ---
Per [facility] Luna grant is cleared from [facility] care. Care team will call family to assess court status.
--- NOTE | 2020-05-05 09:57 | MHC.CARE ---
CARE Team spoke with Pts father who verified he is currently at the [facility] [address] working on obtaining the Section 35.
[2020-05-05 10:00] VITALS: RESP 20
--- NOTE | 2020-05-05 10:03 | MHC.CARE ---
CARE Team spoke with [facility] and provided information.
[2020-05-05 11:07] VITALS: BP 140/53; PULSE 84; RESP 20; TEMP 36.9; O2SAT 97
--- NOTE | 2020-05-05 11:15 | PC.NURSE ---
Pt resting, awakened for viatls and assessment. Cooperative w/ care, + eye contact. Reports he noramally develops symptoms of withdrawal after 2 days w/o etoh.
--- NOTE | 2020-05-05 11:51 | MHC.CARE ---
Per father- Section 35 was granted in [place] and will be transfered to [facility]. CARE team contacted [place] [employer] and notified them Pt is still currently [place] [facility].
[2020-05-05 12:00] VITALS: RESP 20
[2020-05-05] MEDS: LORazepam 0.5 MG TABLET 1 MG PO (12:24)
--- NOTE | 2020-05-05 13:44 | PC.NURSE ---
Pt resting in room, watching television. Care team checking status of pending section 35.
--- NOTE | 2020-05-05 14:14 | PC.NURSE ---
PD in to transfer pt to court for Section 35. Pt cooperative w/ care no report of sign of withdrawal symptoms, no concerns reported. Pt ate lunch prior to [id number].
== END 2020-05-05 14:17 ==
PROVIDERS: Nurse Practitioner Family; Emergency Provider Internal Medicine
DX: F10.129 Alcohol abuse with intoxication, unspecified (principal); R45.851 Suicidal ideations; Y90.6 Blood alcohol level of 120-199 mg/100 ml
CPT/HCPCS: 36415; 80307; 80320; 81001; 85025; 99284

== ENCOUNTER 2020-07-24 14:22 | Outpatient (REF) | payer OTHER, SELFPAY | END 2020-07-24 14:23 | disposition home or self-care (01) | LOC: HO.LAB 14:22 | PROVIDERS: PCP Internal Medicine; Visit Provider Internal Medicine | DX: Z20.822 Contact with and (suspected) exposure to COVID-19 (principal) | CPT/HCPCS: 36415; C9803; U0003; U0005 ==

== ENCOUNTER 2020-10-25 23:45 | Emergency (ER) | payer OTHER, SELFPAY ==
--- NOTE | 2020-10-25 23:47 | ED_ITS ---
HPI - Overdose General Chief Complaint: ETOH/Substance Use Stated Complaint: OD Time Seen by Provider: 10/25/20 23:47 Source: patient and EMS Mode of arrival: EMS Limitations: no limitations History of Present Illness HPI Narrative: went skateboarding met up with some people and snorted some heroin - woke up to PD giving him 2 round of 4mg [place] narcan, responded well, denies SI, upset he is here complaint: accidental overdose Onset (ago): minute(s) Context: Accidental Overdose: wanted to get high Treatments Prior to Arrival: narcan (8mg IN) Related Data Allergies Allergy/AdvReac Type Severity Reaction Status Date / Time No Known Allergies Allergy Verified 05/04/20 22:33 Review of Systems Review of Systems: Constitutional : No Fever, No Chills ENT/Mouth : No Ear Pain, No Nasal Congestion, No sore throat Eyes: No Eye Pain, No Swelling, No Redness Cardiovascular : No Chest Pain, No SOB Respiratory : No Cough, No Sputum, No Dyspnea Gastrointestinal : No Nausea, No Vomiting, No Diarrhea Genitourinary : No Dysuria, No Urinary Frequency Musculoskeletal : No Myalgias Skin : No Skin Lesions, No rash Neuro : No Weakness, No Headache Psych : no Anxiety, no Depression, no SI/HI All other systems reviewed and are negative [facility] Past Medical History Medical History (Updated 10/25/20 @ 23:53 by Augusta Cannon DO) Opiate use Social History Social History (Updated 10/25/20 @ 23:53 by Augusta Cannon DO) Smoking Status: Current every day smoker Substance Use Type: Heroin Physical Exam Vital Signs: Appearance: Alert. Oriented X3. No acute distress. Anxious Eyes: Pupils equal, round and reactive to light. ENT: Pharynx normal. Neck: Normal inspection. Neck supple. CVS: Normal heart rate and rhythm. Pulses normal. Respiratory: No respiratory distress. Breath sounds normal. Abdomen: Soft and nontender. Skin: Skin warm and dry. Normal skin color. Normal skin turgor. Extremities: No lower extremity edema. No calf ttp Neuro: Oriented X 3. No motor deficit. No sensory deficit. MDM - Overdose MDM Narrative Medical decision making narrative: 20 yo male accidental heroin overdose, no signs of trauma, no SI, declines detox services given suboxone clinic number and narcan to take home agrees to stay for 45 minutes Discharge Plan Discharge Clinical Impression: Accidental heroin overdose Qualifiers: Encounter type: initial encounter Qualified Code(s): T40.1X1A - Poisoning by heroin, accidental (unintentional), initial encounter Patient Disposition: Home, Self-Care Instructions: Opioid Use Disorder (ED) Additional Instructions: return to ED for any worsening symptoms or concerns
[2020-10-25 23:50] VITALS: BP 132/70; PULSE 101; RESP 18; TEMP 36.7; O2SAT 98; BMI 23.0
[2020-10-26] MEDS: Naloxone HCl Nasal TAKE HOME 4 MG SPRAY NOSTRILALT (00:52)
== END 2020-10-26 01:32 | disposition home or self-care (01) ==
LOC: HO.ED 10-26 00:17
PROVIDERS: Emergency Provider Emergency Medicine
DX: T40.1X1A Poisoning by heroin, accidental (unintentional), initial encounter (principal); F11.10 Opioid abuse, uncomplicated; Y92.9 Unspecified place or not applicable; Z71.51 Drug abuse counseling and surveillance of drug abuser
CPT/HCPCS: 99284

== ENCOUNTER 2021-01-23 19:16 | Emergency (ER) | payer OTHER, SELFPAY ==
[2021-01-23 19:37] VITALS: BP 102/52; PULSE 82; RESP 16; TEMP 36.6; O2SAT 98; BMI 24.5
--- NOTE | 2021-01-23 21:47 | PC.NURSE ---
PT HAS BEEN CALLED MULTIBLE TIME IN WAITING ROOM HE LEFT AND THEN TRIED TO RETURN AND CALLED A 5 TH TIME AND NOT IN WAITING ROOM.
--- NOTE | 2021-01-23 23:10 | ED.DENTAL ---
HPI - Dental/Oral General Chief complaint: Dental/Oral Stated complaint: Dental pain Time Seen by Provider: 01/23/21 23:06 History of Present Illness HPI Narrative: Patient complains of left upper dental pain for 2 weeks no fever no difficulty breathing or swallowing, pain is mild Related Data Previous Rx's Medication Instructions Recorded amoxicillin 875 mg-potassium 1 tab PO Q12H 7 Days #14 tab 01/23/21 clavulanate 125 mg tablet (Augmentin) ibuprofen 600 mg tablet 600 mg PO Q6H PRN #20 tab 01/23/21 Allergies Allergy/AdvReac Type Severity Reaction Status Date / Time No Known Allergies Allergy Verified 05/04/20 22:33 Review of Systems Review of Systems: Positive for dental pain Negatives are no fever no chills no headache no neck pain no problem breathing or swallowing no drooling no skin rash no swelling under the tongue Yes all other systems are reviewed and are negative [facility] Past Medical History Source: nursing notes reviewed Medical History (Updated 01/24/21 @ 00:02 by Hermila Peters) Opiate use Social History Social History (Updated 10/25/20 @ 23:53 by Augusta Cannon DO) Substance Use Type: Heroin Advance Directives: No Advance Directives Information Provided: Yes Physical Exam Vital Signs: Vital Signs: Last Vital Signs Temp 97.9 F 01/23/21 19:37 Pulse 82 01/23/21 19:37 Resp 16 01/23/21 19:37 BP 102/52 L 01/23/21 19:37 Pulse Ox 98 01/23/21 19:37 Body Mass Index 24.5 General appearance is no acute distress The sinuses are nontender The left upper incisor is tender but there is no fluctuant gum abscess, there is no impairment of breathing or swallowing no drooling no trismus The pharynx is normal no redness swelling or exudate Respiratory no distress Skin no rash Course Course Course Narrative: Patient is treated with antibiotic and advised to follow with dentist, patient is well-appearing and is discharged Discharge Plan Discharge Clinical Impression: Dental caries, Toothache Patient Disposition: Home, Self-Care Additional Instructions: Follow with dentist for further evaluation within 1 week Use antibiotic as directed Return any time for any worse condition or concerns Prescriptions: New amoxicillin-pot clavulanate [Augmentin] 875-125 mg tablet 1 tab PO Q12H 7 Days Qty: 14 RF: 0 ibuprofen 600 mg tablet 600 mg PO Q6H PRN (Reason: pain) Qty: 20 RF: 0 Interventions: ED Discharge Assessment Last Done: 01/23/21 23:34 Discharge Date/Time: 01/23/21 23:35
--- NOTE | 2021-01-23 23:33 | PC.NURSE ---
PT DID NOT WANT TO WAIT TO RECEIVE HIS ANTIBIOTIC AND STATED HE WILL PICK IT UP IN AM.
== END 2021-01-23 23:35 | disposition home or self-care (01) ==
PROVIDERS: Emergency Provider Emergency Medicine; PCP Internal Medicine
DX: K08.89 Other specified disorders of teeth and supporting structures (principal); K02.9 Dental caries, unspecified
CPT/HCPCS: 99283

== ENCOUNTER 2021-02-21 13:55 | Emergency (ER) | payer OTHER, SELFPAY | END 2021-02-21 15:59 | disposition left against medical advice (07) | PROVIDERS: Emergency Provider Emergency Medicine; PCP Internal Medicine | DX: R22.2 Localized swelling, mass and lump, trunk (principal) ==

== ENCOUNTER 2021-02-21 20:24 | Emergency (ER) | payer OTHER, SELFPAY ==
[2021-02-21 20:36] VITALS: BP 143/71; PULSE 106; RESP 16; TEMP 36.6; O2SAT 98; BMI 26.5
== END 2021-02-21 21:49 | disposition left against medical advice (07) ==
PROVIDERS: Emergency Provider Emergency Medicine; PCP Internal Medicine
DX: R22.2 Localized swelling, mass and lump, trunk (principal)
CPT/HCPCS: 99281; 99282

== ENCOUNTER 2021-02-21 22:13 | Emergency (ER) | payer OTHER, SELFPAY ==
[2021-02-21 22:37] VITALS: BP 107/58; PULSE 92; RESP 18; TEMP 37.6; O2SAT 91; BMI 21.5
--- NOTE | 2021-02-21 22:53 | PC.NURSE ---
Patient brought back from waiting room with c/o L.nipple pain. Patient drifting off during conversation. Patient found in waiting room bathroom for being asleep and hard to arouse. When back in room asked patient several times if any drugs were done because I want to be able to help him. Patient SpO2 91% on room air. Patient lethargic throughout conversation. Patient drifting off during conversation while standing. Refusing any treatment and left hospital.
== END 2021-02-21 23:07 | disposition left against medical advice (07) ==
PROVIDERS: Emergency Provider Emergency Medicine; PCP Internal Medicine
DX: R22.2 Localized swelling, mass and lump, trunk (principal)
CPT/HCPCS: 99281

== ENCOUNTER 2021-02-22 17:55 | Emergency (ER) | payer OTHER, SELFPAY ==
[2021-02-22 18:16] VITALS: BP 115/67; PULSE 90; RESP 17; TEMP 36.7; O2SAT 96; BMI 24.3
--- NOTE | 2021-02-22 18:58 | ED_ITS ---
HPI - Skin/Abscess/Foreign Bdy General Chief complaint: Skin/Abscess/Foreign Body Stated complaint: bump on chest Time Seen by Provider: 02/22/21 18:30 Source: patient Mode of arrival: ambulatory Limitations: no limitations History of Present Illness HPI narrative: 20-year-old male with a past medical history of substance abuse here with complaints of swelling and pain to the left nipple for 1 month. No fevers, chills, weight loss. Patient tells me he is currently not using IV drugs. He is abusing Percocet off the street. He denies any family history of breast cancer. He denies any drainage from the nipple. No trauma or injury to the nipple. Has not had this nipple Pierced before. Related Data Previous Rx's Medication Instructions Recorded amoxicillin 875 mg-potassium 1 tab PO Q12H 7 Days #14 tab 01/23/21 clavulanate 125 mg tablet (Augmentin) ibuprofen 600 mg tablet 600 mg PO Q6H PRN #20 tab 01/23/21 Allergies Allergy/AdvReac Type Severity Reaction Status Date / Time No Known Allergies Allergy Verified 05/04/20 22:33 Review of Systems Review of Systems: Yes all other systems are reviewed and are negative Constitutional: Constitutional: Reports no additional constitutional complaints, Denies body ache(s), Denies chills, Denies fever(s), Denies headache (s), Denies weakness and Denies weight loss Eyes: Eyes: Reports no additional eye complaints and Denies change in vision ENT: Reports system reviewed and no additional complaints, except as documented, Denies dizziness, Denies headache(s), Denies nasal congestion, Denies nasal discharge and Denies neck pain Cardiovascular: Cardiovascular: Reports no additional cardiovascular complaints, Denies chest pain, Denies leg edema and Denies dyspnea Respiratory: Respiratory: Reports no additional respiratory complaints, Denies cough and Denies dyspnea Gastrointestinal: Gastrointestinal: Reports no additional gastrointestinal complaints, Denies abdominal pain, Denies diarrhea, Denies nausea and Denies vomiting Genitourinary: Genitourinary: Denies urinary incontinence Musculoskeletal: Musculoskeletal: Reports no additional musculoskeletal compla ints, Denies back pain, Denies arthralgias, Denies joint swelling, Denies neck pain, Denies numbness and Denies tingling Integumentary/Breasts: Skin/Breast: Reports system reviewed and no additional complaints, except as docu, Reports breast mass and Denies rash Neurologic: Reports system reviewed and no additional complaints, except as documented, Denies Abnormal speech present, Denies dizziness, Denies headache (s), Denies numbness, Denies tingling and Denies weakness PMFSH Past Medical History Attestation statement: The following information was validated with the patient. Source: old records reviewed and nursing notes reviewed Medical History Opiate use Social History Social History Substance Use Type: Heroin Advance Directives: No Advance Directives Information Provided: No Physical Exam Vital Signs: Vital Signs: Last Vital Signs Temp 98.0 F 02/22/21 18:16 Pulse 90 02/22/21 18:16 Resp 17 02/22/21 18:16 BP 115/67 02/22/21 18:16 Pulse Ox 96 02/22/21 18:16 Body Mass Index 24.3 Const: General: cooperative, healthy appearing, comfortable and no acute distress Orientation/consciousness: patient oriented x3 Limitations: no li mitations HENMT: Head: Yes normal to inspection Ears: hearing grossly normal bilaterally General nose exam: Normal external nose present Face and sinus: Yes normal facial exam Mouth: Normal oral and palatal mucosa present Throat: Yes posterior oropharynx normal Eyes: General: appearance normal, both eyes and all related structures Pupils: Equal, round and reactive pupils present Neck: Neck: Yes normal visual inspection Chest: Chest palpation & inspection: normal inspection of the chest Breast/axilla palpation: no axillary lymphadenopathy Chest/axillae images: 1. Just under the nipple there is a 2 centimetre circular firm mass that is mildly tender and mobile. There is no warmth or redness. It is not fluctuant. Unable to express any drainage from the nipple Resp: Effort & Inspection: normal respiratory effort Auscultation: clear to auscultation bilaterally Cardio: Rate: regular rate Rhythm: regular rhythm Peripheral pulses: Peripheral pulses 2+ throughout GI: Inspection: Yes normal to inspection Palpation (GI): Soft to palpation and nontender Auscultation: normal bowel sounds Back/Spine/Pelvis: Thoracic/Lumbar Spine: thoracic and lumbar spine normal to inspection Skin: General skin exam: no rashes or lesions noted Neuro: General: patient oriented x3, no focal motor deficits and normal sensation to monofilament Cranial nerves: Yes Equal, round and reactive pupils present Cognition (Neuro): normal cognition Speech: No Abnormal speech present Gait exam (Neuro): Normal gait present Motor exam (neuro): 5/5 motor strength present throughout Extrem: General: Yes normal to inspection Course Course Course Narrative: 20-year-old male here with mass noted under his left nipple for 1 month. No weight loss, fevers or chills. The site does not appear infected or consistent with an abscess is there is no warmth, redness or fluctuance. Patient does have a history of opiate abuse but denies current IV drug use. No history of breast cancer or family history of breast cancer. The patient was examined by attending Dr Almendarez. Will need outpatient ultrasound of the breast. Patient does have a primary care doctor. I recommended he call him tomorrow to arrange this as we do not have ultrasound of site to do this today. Did explain urgency as we cannot completely rule out malignancy. Patient is aware of this Reviewed worrisome signs and symptoms when to return to the emergency department. Comfortable discharge home. MDM - Skin/Abscess/Foreign Bdy Medical Records Attestation: I reviewed the patient's medical records. Lab Data Attestation: I reviewed the patient's lab results. Discharge Plan Discharge Clinical Impression: Nipple symptom or sign in male, Breast lump or mass Patient Disposition: Home, Self-Care Instructions: Breast Mass (ED) Additional Instructions: You have mass underneath your left nipple. You need to be evaluated with a ultrasound which will need to be ordered by your primary care doctor. This is to rule out an infection or cancer. Call your primary care doctor tomorrow to ordered this In the meantime warm compresses. Prescriptions: No Action amoxicillin-pot clavulanate [Augmentin] 875-125 mg tablet 1 tab PO Q12H 7 Days Qty: 14 RF: 0 ibuprofen 600 mg tablet 600 mg PO Q6H PRN (Reason: pain) Qty: 20 RF: 0 Referrals: Wilfredo Monsivais MD [Primary Care Provider] - 2 days Interventions: ED Discharge Assessment Last Done: 02/22/21 18:51 Discharge Date/Time: 02/22/21 18:52
== END 2021-02-22 18:52 | disposition home or self-care (01) ==
PROVIDERS: Emergency Provider Internal Medicine; PCP Internal Medicine
DX: N63.0 Unspecified lump in unspecified breast (principal); N64.4 Mastodynia; F11.90 Opioid use, unspecified, uncomplicated; Z79.899 Other long term (current) drug therapy
CPT/HCPCS: 99282; 99283

== ENCOUNTER 2023-01-14 21:04 | Emergency (ER) | payer OTHER, SELFPAY ==
[2023-01-14 21:25] VITALS: BP 124/73; PULSE 78; RESP 16; TEMP 37.1; O2SAT 98; BMI 22.3
== END 2023-01-15 00:14 | disposition left against medical advice (07) ==
PROVIDERS: Emergency Provider Emergency Medicine; PCP Internal Medicine
DX: Z20.2 Contact with and (suspected) exposure to infections with a predominantly sexual mode of transmission (principal)
CPT/HCPCS: 99281

== ENCOUNTER 2023-01-23 14:40 | Emergency (ER) | payer OTHER, SELFPAY ==
[2023-01-23 15:29] VITALS: BP 120/65; PULSE 73; RESP 18; TEMP 37.1; O2SAT 99; BMI 22.3
[2023-01-24 03:30] LABS: HBS Num1 11.18 mIU/mL (0-7.99); HBc Num1 0.12 S/CO (0.00-0.79); HBsAGNum1 0.48 S/CO (0.00-0.99); Hepatitis B Core Antibody Nonreactive (Nonreactive); Hepatitis B Surface Antigen Negative (Negative); ~HepC Num1 13.85 S/CO (0.00-0.79); ~Hepatitis C Antibody Reactive (Nonreactive)
[2023-01-24 04:24] LABS: HBS Num2 8.47 mIU/mL (0-7.99); HBS Num3 8.13 mIU/mL (0-7.99)
[2023-01-24 04:25] LABS: ~Hepatitis B Surface Antibody GRAYZONE (Nonreactive)
== END 2023-01-23 18:34 | disposition left against medical advice (07) ==
PROVIDERS: Physician Assistant; Emergency Provider Internal Medicine; PCP Internal Medicine
DX: Z20.5 Contact with and (suspected) exposure to viral hepatitis (principal); Z79.899 Other long term (current) drug therapy
CPT/HCPCS: 36415; 86704; 86706; 86803; 87340; 99281; 99282

== ENCOUNTER 2023-01-29 22:08 | Emergency (ER) | payer OTHER, SELFPAY ==
[2023-01-29 22:21] VITALS: BP 122/58; BP 126/80; PULSE 91; PULSE 93; RESP 18; TEMP 36.6; O2SAT 95; O2SAT 96; BMI 21.7
--- NOTE | 2023-01-29 22:40 | PC.NURSE ---
Pt repeatedly trying to leave ED. Pt redirectable at this time. Pt requested and given food and drink. Pt requesting phone to call his mom. Pt changed over. Plan of care ongoing.
--- NOTE | 2023-01-29 22:42 | PC.NURSE ---
Pt alert and oriented. Pt denies pain or sob.
--- NOTE | 2023-01-29 22:43 | PC.NURSE ---
Pt provided with ED phone to call his mother per pt request.
--- NOTE | 2023-01-29 22:49 | ED.ALCOHOL ---
HPI - Alcohol General Chief Complaint: ETOH/Substance Use Stated Complaint: ETOH Time Seen by Provider: 01/29/23 22:32 Source: patient and EMS Mode of arrival: EMS Limitations: no limitations History of Present Illness HPI narrative: Patient comes to the emergency room via ambulance for alcohol intoxication. Patient states that he drank several drinks. Denies drug abuse. Patient awake, alert, patient refusing any care. Patient states that he feels well and his mother can pick him up. Related Data Previous Rx's Medication Instructions Recorded amoxicillin 875 mg-potassium 1 tab PO Q12H 7 days #14 tabs 01/23/21 clavulanate 125 mg tablet (Augmentin) ibuprofen 600 mg tablet 600 mg PO Q6H PRN pain #20 tabs 01/23/21 Allergies Allergy/AdvReac Type Severity Reaction Status Date / Time No Known Allergies Allergy Verified 01/29/23 22:20 Review of Systems Review of Systems: Constitutional : No Weight loss, No Fever, No Chills, No Night Sweats, No Fatigue, No Malaise ENT/Mouth : No Hearing loss, No Ear Pain, No Nasal Congestion, No Sinus Pain, No Hoarseness, No sore throat, No Rhinorrhea, No Swallowing Difficulty Eyes: No Eye Pain, No Swelling, No Redness, No Foreign Body, No Discharge, No Vision Changes Cardiovascular : No Chest Pain, No SOB, No Dyspnea on Exertion, No Orthopnea, No Edema, No Palpitations Respiratory : No Cough, No Sputum, No Wheezing, No Smoke Exposure, No Dyspnea Gastrointestinal : No Nausea, No Vomiting, No Diarrhea, No Constipation, No abdominal Pain, No Hematochezia, No Melena Genitourinary : no irregular bleeding, No Dysuria, No Urinary Frequency, No Hematuria, No Urinary Incontinence, No Urgency, No Flank Pain, No Urinary Flow Changes, No Hesitancy Musculoskeletal : No joint pain, No Myalgias, No Joint Swelling Skin : No Skin Lesions, No rash Neuro : No Weakness, No Numbness, No Paresthesias, No Loss of Consciousness, No Dizziness, No Headache Psych : No Anxiety/Panic, No Depression, No SI/HI/AH/VH, admits to drinking alcohol, denies drug use Heme/Lymph: No Bruising, No Bleeding,No Lymphadenopathy Endocrine : No Polyuria, No Polydipsia, No Temperature Intolerance [facility] Past Medical History Medical History Opiate use Social History Social History Substance Use Type: Heroin Advance Directives: No Advance Directives Information Provided: No Physical Exam ED Vital Signs: Vital Signs - 24 hr 01/29/23 22:21 Temperature 98 F Pulse Rate 91 Respiratory Rate 18 Blood Pressure 122/58 L Pulse Oximetry 95 Oxygen Delivery Method Room Air BMI result Body Mass Index 21.7 Const Other: Appearance: Alert. Oriented X3. No acute distress. Eyes: Pupils equal, round and reactive to light. ENT: Pharynx normal. Neck: Normal inspection. Neck supple. No lymph nodes noted. No crepitus CVS: Normal heart rate and rhythm. Pulses normal. Normal S1 and S2 Respiratory: No respiratory distress. Breath sounds normal. No Wheezing. No rales Abdomen: Soft and nontender. No rigidity. No distention. Skin: Skin warm and dry. Normal skin color. Normal skin turgor. Extremities: No lower extremity edema. No Lacerations. No Rash Neuro: Oriented X 3. No motor deficit. No sensory deficit. Moving all extremities. No slurred speech. CN 2 through 12 grossly intact Psych: calm, cooperative, normal affect Medical Decision Making Medical Decision Making MDM Narrative: -patient alert and oriented x3, no acute distress, clinically sober, steady gait, normal vitals -patient denies suicidal homicidal ideation -patient states that he feels well, patient is clinically sober, patient requesting to be discharged. -patient's girlfriend or his mother is on the way to pick him up Differential Diagnosis Differential Diagnoses: The differential diagnosis associated with the presentation includes (Alcohol intoxication, drug abuse) Discharge Plan Discharge Clinical Impression: Alcoholic intoxication Patient Disposition: Home, Self-Care Instructions: Alcohol Intoxication (ED) Additional Instructions: Please follow-up with your primary care physician tomorrow. If you have any worsening or new symptoms, please return to the emergency room or call 911 Prescriptions: No Action amoxicillin-pot clavulanate [Augmentin] 875-125 mg tablet 1 tab PO Q12H 7 Days Qty: 14 0RF ibuprofen 600 mg tablet 600 mg PO Q6H PRN (Reason: pain) Qty: 20 0RF
--- NOTE | 2023-01-29 23:12 | PC.NURSE ---
Per Srinivasa from [facility] Dr. Hopson told them pt was all set for d/c. Pt never received d/c paperwork prior to being walked out. This RN came out of another room and pt was gone.
== END 2023-01-29 23:16 | disposition home or self-care (01) ==
PROVIDERS: Emergency Provider Emergency Medicine
DX: F10.220 Alcohol dependence with intoxication, uncomplicated (principal); Y90.9 Presence of alcohol in blood, level not specified
CPT/HCPCS: 99282; 99283

== ENCOUNTER 2023-03-06 15:14 | Emergency (ER) | payer OTHER, SELFPAY ==
--- NOTE | 2023-03-06 15:24 | ED.ALCOHOL ---
HPI - Alcohol General Chief Complaint: ETOH/Substance Use Stated Complaint: etoh withdrawl Time Seen by Provider: 03/06/23 16:04 Source: patient, EMS, RN notes reviewed and other (girlfriend) Mode of arrival: EMS Limitations: no limitations History of Present Illness HPI narrative: Patient is a 22-year-old male presenting to the emergency department with reports of tremors/muscle spasms. Patient states that he was drinking heavily for the past 7 days, hard alcohol as well as beer. States his last drink was around 6:00 p.m. last night. Denies any drug use. States that he was at [facility] early this morning and was discharged home. Denies any abdominal pain, nausea, vomiting. Denies any history of withdrawal seizures. States that he has been the alcohol detox previously and is interested in this again. Denies any thoughts of suicidal ideation, homicidal ideation, auditory or visual hallucinations. MD complaint: alcohol withdrawal Last drink: Hours (ago) (last night 18:00) Chronic alcohol use: Yes Previous visits for alcohol intoxication: Yes Recent trauma: No Associated symptoms: tremors Treatments prior to arrival: none Related Data Previous Rx's Medication Instructions Recorded amoxicillin 875 mg-potassium 1 tab PO Q12H 7 days #14 tabs 01/23/21 clavulanate 125 mg tablet (Augmentin) ibuprofen 600 mg tablet 600 mg PO Q6H PRN pain #20 tabs 01/23/21 Allergies Allergy/AdvReac Type Severity Reaction Status Date / Time No Known Allergies Allergy Verified 01/29/23 22:20 Review of Systems Review of Systems: As per HPI Yes all other systems are reviewed and are negative Constitutional: Constitutional: Reports as per HPI [facility] Past Medical History Medical History Opiate use Social History Social History Alcohol intake: current Alcohol intake frequency: 3 or more drinks per day Alcohol type: beer and hard liquor Smoked in Last 30 Days: Yes Use of substances other than those prescribed or required for medical reasons: No Substance Use Type: Heroin Advance Directives: No Physical Exam ED Vital Signs: Vital Signs - 24 hr 03/06/23 15:33 03/06/23 19:47 Temperature 98.2 F 98.7 F Pulse Rate 81 89 Respiratory Rate 15 15 Blood Pressure 113/62 110/54 L Pulse Oximetry 95 97 Oxygen Delivery Method Room Air Room Air BMI result Body Mass Index 23.0 Vital signs have been reviewed and appear to be correct. Blood pressure normal. Heart rate normal. Respiratory rate normal. Temperature normal. Oxygen saturation normal. Const General: cooperative and no acute distress Orientation/consciousness: oriented to person, oriented to place, oriented to time and patient oriented x3 Limitations: no limitations HENMT Head: Yes normocephalic and Yes atraumatic Ears: external ears normal General nose exam: Normal external nose present Face and sinus: Yes face symmetric Mouth: oropharynx normal and moist mucous membranes Throat: Yes uvula midline Eyes Pupils: Equal, round and reactive pupils present Neck Neck: Yes normal visual inspection and Yes supple Resp Effort & Inspection: normal respiratory effort and able to speak in complete sentences Auscultation: clear to auscultation bilaterally Cardio Rate: regular rate Rhythm: regular rhythm Heart sounds: S1 normal heart sound present and S2 normal heart sound present GI Palpation (GI): Soft to palpation and nontender Auscultation: normoactive bowel sounds General: Yes no CVA tenderness Back/Spine/Pelvis Back: no CVA tenderness Skin General skin exam: elasticity normal and turgor normal Neuro General: oriented to person, oriented to place, oriented to time, patient oriented x3, moves all extremities, no focal motor deficits and CN's II-XI intact bilaterally Cranial nerves: Yes Equal, round and reactive pupils present Cognition (Neuro): normal cognition Motor exam (neuro): Tremors during motor activity present bilateral upper extremity Extrem General: Yes full ROM, Yes no pedal edema and Yes no calf tenderness Psych Mental Status: mental status grossly normal Affect: normal affect Thought process: Normal thought process present Course Course Course Narrative: RME - 22 yo male presents to the ER via EMS for evaluation of whole body tremors and muscle spasms. Reported ETOH w/d from EMS. Last drink yesterday. Had been binging the last 7 days. No history of withdrawal seizures. Plan: ativan, labs, CIWA score monitoring Medical Decision Making Medical Decision Making MDM Narrative: Patient is a 22-year-old male presenting to the emergency department with reports of tremors/muscle spasms. On exam patient is awake, A+Ox3, VS WNL, afebrile, normal neurological exam without focal deficits, physical exam findings as above. Patient has been seen in this emergency department multiple times for alcohol intoxication in the past. Given reported symptoms and physical exam findings, initial differential includes alcohol withdrawal, electrolyte abnormality, dehydration, essential tremor. Labs notable for no leukocytosis, mild anemia consistent with prior values, mildly elevated LFTs and CK, ETOH less than 10. Will order CIWA evaluations, lorazepam, fluids. 21:25 Patient stating that he wishes to be discharged home at this time. Symptoms have improved with medication and fluids. Patient was provided with resources for detox. Return precautions discussed at bedside. Patient verbalized understanding of and agreement with plan. Differential Diagnosis Differential Diagnoses: The differential diagnosis associated with the presentation includes As Per [facility]. Admission/Observation Consideration of admission/observation: Escalation of care including admission/observation considered Lab Data [facility] Lab Attestation statement: I reviewed the patient's lab results. As per MDM. 03/06/23 15:51 03/06/23 15:51 Labs: Lab Results 03/06/23 Range/Units 15:51 WBC 7.8 (4.8-10.8) X10*3/uL RBC 3.96 L (4.60-5.80) X10*6/uL Hgb 13.2 L (14.0-18.0) g/dl Hct 38.6 L (42.0-52.0) % MCV 97.5 (80.0-98.0) fL MCH 33.3 H (27.0-33.0) pg MCHC 34.2 (31.0-36.0) g/dl RDW 11.9 (11.0-16.0) % Plt Count 256 (160-400) X10*3/uL MPV 8.7 L (9.4-12.4) fL Immature Gran % (Auto) 0.3 (0.0-0.4) % Neut % (Auto) 75.9 H (45-73) % Lymph % (Auto) 13.9 L (20-40) % [place] % (Auto) 9.3 (2-11) % Eos % (Auto) 0.3 (0-4) % Baso % (Auto) 0.3 (0-2) % Lymph # (Auto) 1.1 L (1.2-4.9) X10*3/uL [place] # (Auto) 0.7 (0.1-1.2) X10*3/uL Eos # (Auto) 0.0 (0.0-0.4) X10*3/uL Baso # (Auto) 0.0 (0.0-0.2) X10*3/uL Abs Immat Gran (auto) 0.02 (0.00-0.03) X10*3/uL Absolute Neuts (auto) 6.0 (2.0-8.3) x10*3/uL Absolute Nucleated RBC 0.000 (0.0-0.012) X10*3/uL Nucleated RBC % (auto) 0.0 (0.0-0.2) /100WBC Sodium 141 (135-145) mmol/L Potassium 4.0 (3.3-5.1) mmol/L Chloride 106 (96-108) mmol/L Carbon Dioxide 26 (22-29) mmol/L Anion Gap 13 (12-20) BUN 8 L (9-16) mg/dL Creatinine 0.78 (0.5-1.4) mg/dL Estim Creat Clear Calc 154.5 Estimated GFR > 60 Random Glucose 116 H (60-115) mg/dL Calcium 9.8 D (8.4-10.2) mg/dL Magnesium 1.7 (1.6-2.6) mg/dL Total Bilirubin 0.7 (0.0-1.0) mg/dL Direct Bilirubin 0.3 (0.0-0.5) mg/dL AST 56 H (5-37) U/L ALT 79 H (0-40) U/L Alkaline Phosphatase 71 (39-117) U/L Total Creatine Kinase 318 H (38-174) U/L Total Protein 7.3 (6.5-8.0) g/dL Albumin 4.2 (3.5-5.0) g/dL Ethyl Alcohol < 10 mg/dL External Record Review External record reviewed: Inpatient record, Office record and Outpatient record Medications Administered Generic Name Dose Route Start Last Admin Trade Name Freq PRN Reason Stop Dose Admin Sodium Chloride 1,000 mls @ 999 mls/hr 03/06/23 21:00 03/06/23 21:15 Ns IV 03/06/23 22:00 999 mls/hr .Q1H1M ZAIDA Administration Lorazepam 1 mg 03/06/23 18:15 03/06/23 18:20 Lorazepam 1 Mg Tablet PO 03/10/23 18:14 1 mg Q4H ZAIDA Administration Taper Discontinued Medications Generic Name Dose Route Start Last Admin Trade Name Freq PRN Reason Stop Dose Admin Sodium Chloride 1,000 mls @ 999 mls/hr 03/06/23 15:30 03/06/23 16:24 Ns IVCONT 03/06/23 16:30 Infused .Q1H1M ZAIDA Infusion Lorazepam 2 mg 03/06/23 15:24 03/06/23 15:29 Lorazepam 2 Mg/Ml Vial IVPUSH 03/06/23 15:25 2 mg ONCE ONE Administration Discharge Plan Discharge Clinical Impression: Alcohol withdrawal syndrome Qualifiers: Complication of substance-induced condition: uncomplicated Qualified Code(s): F10.930 - Alcohol use, unspecified with withdrawal, uncomplicated Patient Disposition: Home, Self-Care Instructions: Alcohol Withdrawal (DC) Additional Instructions: You were evaluated in the emergency department today for tremors which were likely related to alcohol withdrawal. You were given IV fluids and medication and your symptoms improved. You were provided with resources for detox centers. Return to the emergency department if you develop worsening tremors, persistent vomiting, fevers, seizures, or any other concerning symptoms. Prescriptions: No Action amoxicillin-pot clavulanate [Augmentin] 875-125 mg tablet 1 tab PO Q12H 7 Days Qty: 14 0RF ibuprofen 600 mg tablet 600 mg PO Q6H PRN (Reason: pain) Qty: 20 0RF
[2023-03-06] MEDS: LORazepam 2 MG/ML VIAL IVPUSH (15:29)
[2023-03-06] MEDS: 0.9 % Sodium Chloride 1,000 ML 999 ML IVCONT (15:30)
[2023-03-06 15:33] VITALS: BP 113/62; BP 131/71; PULSE 81; PULSE 93; RESP 15; TEMP 36.8; O2SAT 100; O2SAT 95; BMI 23.0
[2023-03-06 15:39] VITALS: PULSE 68
[2023-03-06 15:57] LABS: MANUAL DIFF FLAG NO
[2023-03-06 16:00] LABS: Basophils Percent Auto 0.3 % (0-2); Eosinophils Percent Auto 0.3 % (0-4); Hematocrit 38.6 % (42.0-52.0); Hemoglobin 13.2 g/dl (14.0-18.0); Imm Gran Abs Auto 0.02 X10*3/uL (0.00-0.03); Imm Gran Pct Auto 0.3 % (0.0-0.4); Lymphocytes Absolute Auto 1.1 X10*3/uL (1.2-4.9); Lymphocytes Percent Auto 13.9 % (20-40); Mean Corpuscular HGB Conc 34.2 g/dl (31.0-36.0); Mean Corpuscular Hemoglobin 33.3 pg (27.0-33.0); Mean Corpuscular Volume 97.5 fL (80.0-98.0); Mean Platelet Volume 8.7 fL (9.4-12.4); Monocytes Absolute Auto 0.7 X10*3/uL (0.1-1.2); Monocytes Percent Auto 9.3 % (2-11); Neutrophils Percent Auto 75.9 % (45-73); Platelet Count 256 X10*3/uL (160-400); Red Blood Count 3.96 X10*6/uL (4.60-5.80); Red Cell Distribution Width 11.9 % (11.0-16.0); White Blood Count 7.8 X10*3/uL (4.8-10.8)
[2023-03-06 16:27] LABS: Alanine Aminotransferase 79 U/L (0-40); Albumin Level 4.2 g/dL (3.5-5.0); Alkaline Phosphatase 71 U/L (39-117); Anion Gap 13 (12-20); Aspartate Amino Transferase 56 U/L (5-37); Bilirubin Direct 0.3 mg/dL (0.0-0.5); Bilirubin Total 0.7 mg/dL (0.0-1.0); Blood Urea Nitrogen 8 mg/dL (9-16); Calcium 9.8 mg/dL (8.4-10.2); Carbon Dioxide 26 mmol/L (22-29); Chloride 106 mmol/L (96-108); Creatinine Clr Calc Pharmacy 154.5; Estimated Glomerular Filt Rate > 60; Ethanol < 10 mg/dL; Glucose Random 116 mg/dL (60-115); Magnesium 1.7 mg/dL (1.6-2.6); Sodium 141 mmol/L (135-145); Total Protein 7.3 g/dL (6.5-8.0)
[2023-03-06] MEDS: LORazepam 1 MG TABLET PO (18:20)
--- NOTE | 2023-03-06 18:29 | MHC.RECOVSUP ---
Attempted to meet with pt in ED3 who is here for ROSE. At this time pt is not able to communicate and might be admitted. Recovery resources left at bedside.
[2023-03-06 19:47] VITALS: BP 110/54; PULSE 89; RESP 15; TEMP 37.1; O2SAT 97
[2023-03-06] MEDS: 0.9 % Sodium Chloride 1,000 ML 999 ML IV (21:15)
== END 2023-03-06 21:54 | disposition home or self-care (01) ==
PROVIDERS: Physician Assistant; Emergency Provider Emergency Medicine; PCP Internal Medicine
DX: F10.930 Alcohol use, unspecified with withdrawal, uncomplicated (principal); Y90.0 Blood alcohol level of less than 20 mg/100 ml; R11.2 Nausea with vomiting, unspecified; Z79.899 Other long term (current) drug therapy; Z71.41 Alcohol abuse counseling and surveillance of alcoholic
CPT/HCPCS: 36415; 80048; 80076; 80307; 82550; 83735; 85025; 96361; 96365; 96375; 99285; J2060

== ENCOUNTER 2023-03-22 10:59 | Outpatient (AMB) | payer OTHER, SELFPAY ==
[2023-03-22 11:28] VITALS: BP 112/70; PULSE 85; TEMP 36.6; O2SAT 98; BMI 23.0
--- NOTE | 2023-03-22 11:28 | MHC.OFFWIV ---
Intake Vital Signs 03/22/23 11:28 Height 5 ft 11 in Weight 165 lb BMI 23.0 BP 112/70 Blood Pressure Location Lt brachial Position Sitting Pulse 85 Pulse Source Pulse Oximeter Temp 97.8 F Temp Source Temporal Artery Scan Pulse Oximetry (%) 98 Oxygen Delivery Method Room Air Intake Visit Reasons: EP, UTI? Intake Note: pt is here for c/o UTI Patient Tobacco Use Status: Never used Tobacco Allergies No Known Allergies Allergy (Verified 03/22/23 11:28) Do you need a note to return to daycare/school/sports/work: Yes HPI HPI Comments History of Present Illness Details 22 yo male that presents for concern of UTI. experiences discomfort sensation while urinating. Feels like irritation denies fevers chills or back pain nausea vomiting or abdominal pain. He denies back pain penile discharge sexually active with 1 partner rashes or lesions testicular pain or swelling PFSH Medical History Opiate use Social History Alcohol intake: current Alcohol intake frequency: 3 or more drinks per day Alcohol type: beer and hard liquor Patient Tobacco Use Status: Never used Tobacco Substance Use Type: Heroin Review of Systems Reports dysuria Physical Exam Vital Signs: Last Vital Signs Temp 97.8 F 03/22/23 11:28 Pulse 85 03/22/23 11:28 BP 112/70 03/22/23 11:28 Pulse Ox 98 03/22/23 11:28 Oxygen Delivery Method Room Air 03/22/23 11:28 BMI result Body Mass Index 23.0 Const General: healthy appearing, comfortable, no acute distress and alert Orientation/consciousness: patient oriented x3 Limitations: no limitations HEENT Head: Yes normal to inspection Ears: hearing grossly normal bilaterally Resp Effort & Inspection: normal respiratory effort and able to speak in complete sentences Cardio Rate: regular rate Skin General skin exam: no rashes or lesions noted Neuro General: patient oriented x3 Extrem General: Yes normal to inspection Assessment & Plan Assessment & Plan (1) Dysuria: Code(s): R30.0 - Dysuria Plan: Unclear etiology of patient's pain at this time. Urinalysis was obtained showed no evidence of acute infection will send urine for gonorrhea chlamydia testing at patient request. Given dysuria will treat for 5 days with cephalexin and if symptoms did not improve recommend patient return for further evaluation. Discharge instructions, follow up and treatment are discussed with patient in my usual fashion. Alternatives in treatment are also discussed. The patient will return for worsening symptoms or as needed. Advised that any labs/imaging ordered will be followed up on and contact made if further treatment needed. Counseled that patient's condition may require further evaluation and/or treatment. Symptoms of concern for worsening disorder discussed in detail in my customary manner. Patient does verbalize understanding of the plan, there are no apparent barriers to communication. The patient is given the opportunity to ask questions and have them answered to his/her satisfaction Orders: Orders CT NG by PCR Today R30.0 - Dysuria Medications: New cephalexin 500 mg PO BID 5 days 10 caps 0RF Coding Level of Care Code Est Pt Level 3 (61083) Diagnoses Dysuria R30.0
== END 2023-03-22 12:20 | disposition home or self-care (01) ==
PROVIDERS: PCP Internal Medicine; Visit Provider Physician Assistant
DX: R30.0 Dysuria (principal)
CPT/HCPCS: 99213

== ENCOUNTER 2023-03-22 12:17 | Outpatient (REF) | payer OTHER, SELFPAY ==
[2023-03-22 17:58] LABS: CT PCR NOT DETECTED (Not Detect.); NG PCR NOT DETECTED (Not Detect.)
== END 2023-03-22 12:18 | disposition home or self-care (01) ==
LOC: HO.LAB 12:17
PROVIDERS: Visit Provider Physician Assistant
DX: R30.0 Dysuria (principal)
CPT/HCPCS: 0353U

== ENCOUNTER 2023-04-01 14:33 | Outpatient (AMB) | payer OTHER, SELFPAY ==
[2023-04-01 14:41] VITALS: BP 122/80; PULSE 76; O2SAT 98; BMI 22.6
--- NOTE | 2023-04-01 14:41 | A.OFFPC_ITS ---
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 Previous PCP Dr. Monsivais about 3 years ago per patient. Patient reports that couple days ago he finished cephalexin for UTI, still reports some mild burning with urination and feels like there is irritation inside the penis. Denies blood in urine, or penile discharge, denies STI exposure. Gonorrhea and chlamydia negative couple weeks ago. He reports stopping drinking alcohol 03/06/2023. No heroin use in the past 7 months. No shortness of breath or chest pain. [facility] Medical History (Updated 04/04/23 @ 10:10 by JIAN Sparks) History of alcohol use Opiate use Surgical History H/O adenoidectomy Hx of tonsillectomy H/O hand surgery History of surgery on lower extremity S/P ear surgery Social History Housing: House Alcohol intake: current Alcohol intake frequency: 3 or more drinks per day Alcohol type: beer and hard liquor Patient Tobacco Use Status: Current everyday Tobacco user Cigarette Packs Per Day: 1 Substance Use Type: Heroin service: No Current occupational status: unemployed Cognitive needs: No Hearing needs: No Vision needs: No Questionnaire PHQ-9 Over the last 2 weeks, how often have you been bothered by any of the following problems? 1. Little interest or pleasure in doing things: not at all 2. Feeling down, depressed, or hopeless: not at all 3. Trouble falling or staying asleep, or sleeping too much: not at all 4. Feeling tired or having little energy: not at all 5. Poor appetite or overeating: not at all 6. Feeling bad about yourself - or that you are a failure or have let yourself or your family down: not at all 7. Trouble concentrating on things, such as reading the newspaper or watching television: not at all 8. Moving or speaking so slowly that other people could have noticed. Or the opposite - being so fidgety or restless that you have been moving around a lot more than usual: not at all 9. Thoughts that you would be better off or of hurting yourself in some way: not at all Total score: 0 Depression Screening Interpretation: Negative Depression Screening Done: Yes 46819 - PHQ-9 Billing: Yes Source: Developed by Drs. Saul Juarez, Kaitlynn Laird, Sohan Tierney and colleagues, with an educational franklyn from [employer]. Thrive Questionnaire Date Thrive assessed: 04/01/23 I am a: Patient What is your living situation today?: I have a steady place to live Within the past 12 months, did the food you bought not last and you didn't have the money to get more?: Never true Within the past 12 months, did you worry whether your food would run out before you got money to buy more?: Never true Do you have trouble paying for medicines?: No Do you have trouble getting transportation to medical appointments?: No Do you have trouble paying your heating and electricity bill?: No Do you have trouble taking care of your child, family member or friend?: No Do you have trouble with day-to-day activities such as bathing, preparing meals, shopping, managing finances, etc.?: No Are you currently unemployed and looking for a job?: No Are you interested in more education?: No Currently or been in a relationship where the following occur: no concerns reported AUDIT C Alcohol Use Questionnaire (AUDIT-C) 1. How often do you have a drink containing alcohol?: Never 3. How often do you have six or more drinks on one occasion?: Never Total Score: 0 Score Reviewed/Action Taken: No PERRI-7 AMB Questionnaire PERRI-7 Date PERRI - 7 assessed: 04/01/23 Feeling nervous, anxious, or on edge: 0 = Not at all Not being able to stop or control worryin = Not at all Worrying too much about different things: 0 = Not at all Trouble relaxin = Not at all Being so restless that it is hard to sit still: 0 = Not at all Becoming easily annoyed or irritable: 0 = Not at all Feeling afraid as if something awful might happen: 0 = Not at all Total PERRI-7 score (0-4 normal; 5-9 mild; 10-14 moderate; 15-21 severe): 0 Source: Developed by Drs. Saul Juarez, Kaitlynn Laird, Sohan Tierney and colleagues, with an educational franklyn from [employer]. PERRI-7 Assessment Billing PERRI-7 Assessment Tool: PERRI-7 Assessment 35870 Review of Systems Const Denies body aches, Denies chills, Denies fever(s) and Denies headache(s) Eyes Denies change in vision ENT Denies dizziness, Denies otalgia, Denies headache(s), Denies nasal discharge, Denies sinus pain and Denies sore throat Card Denies chest pain, Denies edema, Denies lightheadedness and Denies dyspnea Resp Denies cough, Denies dyspnea and Denies wheezing GI Denies abdominal pain, Denies constipation, Denies diarrhea, Denies nausea and Denies vomiting Reports as per HPI, Denies hematuria, Denies difficulty urinating, Reports dysuria and Denies flank pain Musc Denies myalgias Skin/Breast Denies rash Neuro Denies dizziness and Denies headache(s) Aller/Immun Denies wheezing Physical exam (Primary Care) Vital Signs: Last Vital Signs Pulse 76 04/01/23 14:41 BP 122/80 04/01/23 14:41 Pulse Ox 98 04/01/23 14:41 Oxygen Delivery Method Room Air 04/01/23 14:41 BMI result Body Mass Index 22.6 Tobacco/Smoking Status: Tobacco use Status Tobacco use date assessed 04/01/23 04/01/23 14:42 Patient Tobacco Use Status Current everyday Tobacco 04/01/23 14:47 PHQ-9: PHQ-9 Score PHQ-9: Total score 0 04/01/23 15:15 Depression Screening Interpretation: Negative Thrive Assessment: Date of Thrive Assessment Date Thrive assessed 04/01/23 04/01/23 14:42 Currently or been in a relationship where the following occur: no concerns reported Const General: cooperative and no acute distress Orientation/consciousness: patient oriented x3 HENMT Head: Yes normocephalic and Yes atraumatic Ears: TM's normal bilaterally Face and sinus: Yes sinuses nontender Mouth: oropharynx normal and moist mucous membranes Throat: Yes posterior oropharynx normal Eyes General: appearance normal, both eyes and all related structures Pupils: Equal, round and reactive pupils present EOM: EOMs intact bilaterally Neck Neck: Yes normal visual inspection, Yes full ROM and Yes no lymphadenopathy Thyroid: Thyroid normal Resp Effort & Inspection: normal respiratory effort and able to speak in complete sentences Auscultation: clear to auscultation bilaterally, no crackles, no rales, no rhonchi and no wheezes Cardio Rate: regular rate Rhythm: regular rhythm Heart sounds: S1 normal heart sound present, S2 normal heart sound present and no murmurs GI Palpation (GI): Soft to palpation, not firm, nontender, no guarding, not rigid and no hepatosplenomegaly Auscultation: normal bowel sounds General: No CVA tenderness Back/Spine/Pelvis Back: No CVA tenderness Skin General skin exam: no rashes or lesions noted Neuro General: patient oriented x3 Cranial nerves: Yes Equal, round and reactive pupils present Gait exam (Neuro): Normal gait present Extrem General: Yes full ROM and No edema Results AMB Urinalysis, Automated UA Leukoctes 0 Conor/uL Last Edit by REYNALDO Frances on 04/01/23 15:08 UA Nitrite Negative Last Edit by REYNALDO Frances on 04/01/23 15:08 UA Urobilinogen 1 mg/dL Last Edit by REYNALDO Frances on 04/01/23 15:08 UA Protein 15 mg/dL Last Edit by REYNALDO Frances on 04/01/23 15:08 UA pH 6.0 Last Edit by REYNALDO Frances on 04/01/23 15:08 UA Blood 0 Nando/uL Last Edit by REYNALDO Frances on 04/01/23 15:08 UA Specific [place] 1.030 Last Edit by REYNALDO Frances on 04/01/23 15:08 UA Ketone Positive Last Edit by REYNALDO Frances on 04/01/23 15:08 UA Bilirubin 0 mg/dL Last Edit by REYNALDO Frances on 04/01/23 15:08 UA Glucose 0 mg/dL Last Edit by REYNALDO Frances on 04/01/23 15:08 Results Reviewed Results Reviewed: Laboratory Last Values Urine pH (Auto) 6.0 04/01/23 14:54 Specific [place] (Auto) 1.030 04/01/23 14:54 Urine Protein (Auto) 15 mg/dL 04/01/23 14:54 Glucose (UA)(Auto) 0 mg/dL 04/01/23 14:54 Urine Ketones (Auto) Positive 04/01/23 14:54 Urine Blood (Auto) 0 Nando/uL 04/01/23 14:54 Urine Nitrite (Auto) Negative 04/01/23 14:54 Urine Bilirubin (Auto) 0 mg/dL 04/01/23 14:54 Urine Urobilinogen (Auto) 1 mg/dL 04/01/23 14:54 Leukocyte Esterase (Auto) 0 Conor/uL 04/01/23 14:54 Assessment and Plan Assessment & Plan (1) Routine screening for STI (sexually transmitted infection): Code(s): Z11.3 - Encounter for screening for infections with a predominantly sexual mode of transmission Plan: STI screening ordered Patient agreed with the plan (2) Elevated LFTs: Code(s): R79.89 - Other specified abnormal findings of blood chemistry Plan: AST 56, ALT 79 03/2023 Patient reports stopping drinking alcohol 03/06/2023 Will recheck blood work (3) Encounter to establish care: Code(s): Z76.89 - Persons encountering health services in other specified circumstances (4) Dysuria: Code(s): R30.0 - Dysuria Plan: Due to patient being symptomatic will treat with Bactrim Increase fluid consumption Will send urine for culture Signs and symptoms reviewed when to notify provider or go to the emergency department Plan Follow-up in 2 months for PE and labs Orders: Orders Vitamin B12 and Folate 04/01/23 Z76.89 - Persons encountering health services in other specified circumstances Comprehensive Met. Panel 04/01/23 Z76.89 - Persons encountering health services in other specified circumstances Syphilis Screen 04/01/23 Z11.3 - Encounter for screening for infections with a predominantly sexual mode of transmission AMB Urinalysis Automated 04/01/23 Z13.9 - Encounter for screening, unspecified Vitamin D 25-OH Total 04/01/23 Z76.89 - Persons encountering health services in other specified circumstances TSH reflex Free T4 04/01/23 Z76.89 - Persons encountering health services in other specified circumstances Hepatitis A,B,C Profile 04/01/23 R79.89 - Other specified abnormal findings of blood chemistry HIV Ab/Ag 04/01/23 Z11.3 - Encounter for screening for infections with a predominantly sexual mode of transmission Urine Culture 04/01/23 R30.0 - Dysuria Medications: New sulfamethoxazole-trimethoprim 800-160 mg (Bactrim DS) 1 tab PO Q12H 14 tabs 0RF R30.0 - Dysuria Coding Level of Care Code New Pt Level 3 (43072) Diagnoses Routine screening for STI (sexually transmitted infection) Z11.3 Elevated LFTs R79.89 Encounter to establish care Z76. Dysuria R30.0 Additional Codes PERRI-7 Assessment Billing - PERRI-7 Assessment Tool: PERRI-7 Assessment 93255 ([id number])
== END 2023-04-01 15:16 | disposition home or self-care (01) ==
PROVIDERS: Visit Provider Nurse Practitioner Family
DX: R30.0 Dysuria (principal)
CPT/HCPCS: 81003; 99203

== ENCOUNTER 2023-04-01 15:11 | Outpatient (REF) | payer OTHER, SELFPAY | END 2023-04-01 15:12 | disposition home or self-care (01) | LOC: HO.LAB 15:11 | PROVIDERS: Visit Provider Nurse Practitioner Family | DX: R30.0 Dysuria (principal) | CPT/HCPCS: 87086 ==

== ENCOUNTER 2023-05-14 01:06 | Emergency (ER) | payer OTHER, SELFPAY ==
--- NOTE | ~2023-05-14 | CT_ITS ---
EXAMINATION: CT HEAD WITHOUT CONTRAST CT FACIAL BONES WITHOUT CONTRAST CT CERVICAL SPINE WITHOUT CONTRAST CLINICAL INFORMATION: Trauma. Pain. COMPARISON: 03/22/2020 TECHNIQUE: Contiguous axial imaging was performed through the head, facial bones and cervical spine without intravenous administration of contrast. Sagittal and coronal reformatted images also obtained. This CT examination was performed using dose optimization techniques as appropriate, variously including the following: *Automated exposure control *Adjustment of mA and/or kV according to patient size (this includes techniques or standardized protocols for targeted exams where dose is matched to indication/reason for exam; i.e. extremities or head) *Use of iterative reconstruction technique DLP: 1525 mGy-cm FINDINGS: The lateral, third and fourth ventricles are normally outlined. The cortical sulci and basal cisterns are normally outlined as well. There is no acute territorial defect, hemorrhage or midline shift. The extra-axial spaces are unremarkable. Calvarium/scalp: Intact. Facial bones: There is a comminuted fracture of the right orbit with minimal inferior displacement of the central fracture fragment approximately 2 mm. Right orbital floor fracture extends anteriorly to involve the zygomatic arch of the right orbit. There is a lateral right orbital fracture. There is also a significantly comminuted displaced fracture lateral right maxillary sinus extending posteriorly with a displaced fracture fragment approximately 1.4 cm into the right maxillary sinus. There is also a mildly displaced minimally comminuted fracture of the anterior right maxillary sinus. There is a mildly depressed and comminuted fractures of the right zygoma. There is a right maxillary sinus opacity. The remaining maxillofacial sinuses are clear. Intraorbital structures are grossly unremarkable. Cervical spine: There is straightening of the expected cervical spine curvature. The disc spaces are maintained. The bone mineralization is normal. There is no fracture. Soft tissues are unremarkable. The visualized upper lung whitmore are clear. CT/CT cervical spine wo IV con IMPRESSION: No acute intracranial abnormality. Significant fractures floor of the right orbit extending to the zygomatic process, significantly comminuted fracture lateral wall of the right maxillary sinus and mildly displaced fracture anterior right maxillary sinus. There is also a right zygomatic fracture and fracture lateral wall of the right orbit. Unremarkable cervical spine CT..
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
[2023-05-14 01:26] VITALS: BP 153/80; PULSE 103; PULSE 126; RESP 20; O2SAT 98; BMI 21.4
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
--- NOTE | 2023-05-14 01:34 | PC.NURSE ---
pt changed over with security, belongings placed in locker 8 in POD.
[2023-05-14 03:52] VITALS: BP 112/72; PULSE 116; RESP 22; TEMP 36.8
--- NOTE | 2023-05-14 05:28 | PC.NURSE ---
pt refused discharge medications and discharge vitals. pt verbally aware of d/c instructions. provider aware.
== END 2023-05-14 05:31 | disposition left against medical advice (07) ==
PROVIDERS: Emergency Provider Emergency Medicine
DX: S02.92XA Unspecified fracture of facial bones, initial encounter for closed fracture (principal); Y04.0XXA Assault by unarmed brawl or fight, initial encounter; Y93.89 Activity, other specified; Y92.89 Other specified places as the place of occurrence of the external cause; Y99.9 Unspecified external cause status
CPT/HCPCS: 70450; 70486; 72125; 99284

== ENCOUNTER 2023-05-14 06:51 | Emergency (ER) | payer OTHER, SELFPAY ==
[2023-05-14 07:02] VITALS: BP 112/75; BP 112/76; PULSE 100; PULSE 114; RESP 18; O2SAT 96; O2SAT 97; BMI 19.4
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
--- NOTE | 2023-05-14 07:32 | ED_ITS ---
HPI - Overdose General Chief Complaint: Overdose Stated Complaint: overdose Time Seen by Provider: 05/14/23 07:12 History of Present Illness HPI Narrative: Patient is 22 years old presents today with having found on the sidewalk not breathing. Altered. PD give patient 8 mg of Narcan. Patient woke up. Admitted to using heroin. Patient denies any suicidal homicidal ideations. Did do drugs for recreational purposes and currently does not want to go to detox. he has no complaint Related Data Previous Rx's Medication Instructions Recorded sulfamethoxazole 800 1 tab PO Q12H #14 tabs 04/01/23 mg-trimethoprim 160 mg tablet (Bactrim DS) acetaminophen 500 mg tablet 500 mg PO Q6H PRN fever or pain 05/14/23 #30 tabs amoxicillin 500 mg-potassium 1 tab PO BID #20 tabs 05/14/23 clavulanate 125 mg tablet (Augmentin) Allergies Allergy/AdvReac Type Severity Reaction Status Date / Time No Known Allergies Allergy Verified 05/14/23 01:30 Review of Systems Review of Systems: No fever no chills no focal weakness Yes all other systems are reviewed and are negative [facility] Past Medical History Attestation statement: The following information was validated with the patient. Medical History History of alcohol use Opiate use Surgical History H/O adenoidectomy Hx of tonsillectomy H/O hand surgery History of surgery on lower extremity S/P ear surgery Social History Social History Housing: House Alcohol intake: current Alcohol intake frequency: 3 or more drinks per day Alcohol type: beer and hard liquor Patient Tobacco Use Status: Current everyday Tobacco user Cigarette Packs Per Day: 1 Substance Use Type: Heroin Advance Directives: No Advance Directives Information Provided: No service: No Current occupational status: unemployed Cognitive needs: No Hearing needs: No Vision needs: No Physical Exam Vital Signs: Vital Signs: Last Vital Signs Pulse 100 05/14/23 07:02 Resp 18 05/14/23 07:02 BP 112/75 05/14/23 07:02 Pulse Ox 96 05/14/23 07:02 O2 Del Method Room Air 05/14/23 07:02 BMI result Body Mass Index 19.4 Appearance: Alert. Oriented X3. No acute distress. Eyes: Pupils equal, round and reactive to light. ENT: Pharynx normal. Neck: Normal inspection. Neck supple. No lymph nodes noted. No crepitus CVS: Normal heart rate and rhythm. Pulses normal. Normal S1 and S2 Respiratory: No respiratory distress. Breath sounds normal. No Wheezing. No rales Abdomen: Soft and nontender. No rigidity. No distention. good BS x4 Skin: Skin warm and dry. Normal skin color. Normal skin turgor. Extremities: No lower extremity edema. Neurovascular intact to all extremities. No Lacerations. No Rash Neuro: Oriented X 3. No motor deficit. No sensory deficit. Moving all extermities. No slurred speech Medical Decision Making Medical Decision Making MDM Narrative: Patient monitoring emergency department for over 2 hours. Currently he is awake alert oriented. Will discharge patient home explained to patient the need to start using recreational drugs. Differential Diagnosis Cardiac overdose hypoglycemia Prescription Management Narcan prescribed Chronic Conditions Polysubstance abuse Social Determinants Patient?s care significantly limited by Social Determinants of Health including: Alcoholism and drug addiction in family Discharge Plan Discharge Clinical Impression: Drug overdose Patient Disposition: Home, Self-Care Instructions: Adult Overdose (ED) Prescriptions: No Action amoxicillin-pot clavulanate [Augmentin] 500-125 mg tablet 1 tab PO BID Qty: 20 0RF acetaminophen 500 mg tablet 500 mg PO Q6H PRN (Reason: fever or pain) Qty: 30 0RF sulfamethoxazole-trimethoprim [Bactrim DS] 800-160 mg tablet 1 tab PO Q12H Qty: 14 0RF Referrals: [facility] [Primary Care Provider] - (Please go to detox. Please stop using the heroin.)
[2023-05-14] MEDS: Ondansetron ODT 4 MG TAB.RAPDIS TRANSLINGU (10:43)
--- NOTE | 2023-05-14 10:50 | PC.NURSE ---
pt refused to take home narcan. sts he doesn't want his mom to see it and that he doesn't do drugs anymore, he just fed up last night .
== END 2023-05-14 10:52 | disposition home or self-care (01) ==
PROVIDERS: Emergency Provider Emergency Medicine Emergency Medical Services
DX: T50.904A Poisoning by unspecified drugs, medicaments and biological substances, undetermined, initial encounter (principal); Y92.9 Unspecified place or not applicable
CPT/HCPCS: 99283

== ENCOUNTER 2023-06-21 20:11 | Emergency (ER) | payer OTHER, SELFPAY ==
[2023-06-21 20:15] VITALS: BP 130/80; PULSE 73; O2SAT 98
[2023-06-21 20:18] VITALS: RESP 16; TEMP 36.8; BMI 25.8
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
[2023-06-21 23:03] VITALS: BP 103/74; PULSE 109; RESP 16; O2SAT 94
--- NOTE | 2023-06-21 23:04 | PC.NURSE ---
Assumed care of pt @ 23:05. Laying in bed, eyes closed and appears to be sleeping. VSS at this time. Sitter @ bedside.
[2023-06-22 01:36] VITALS: BP 116/70; PULSE 92; RESP 15; TEMP 36.6
--- NOTE | 2023-06-22 01:37 | PC.NURSE ---
PT laying in bed, offers no complaints at this time. VSS. Plan of care ongoing.
--- NOTE | 2023-06-22 01:46 | PC.NURSE ---
late entry - pt brought into ED 22H by ems for etoh use at 20:15 - per ems no narcan given in field no suspicion of OD - pt admitted to drinking too much alcohol , has been in and out of rehabs before recently. MD Ambrocio at bedside to assess pt on arrival to ED, per MD he is familiar with pt and pt been here prior for ETOH. per MD will watch patient, let him sleep and reassess when he wakes. pt woke up around 22:00 , asking to go home, ambulating with steady gait, calling mom on phone to come pick him up. per , as long as pt has sober ride home he is safe to go home. patient calling mom but mom unable to come pick patient up. per tech around 23:00 pt ambulated to bathroom and back , came back, laid on stretcher and fell back asleep, was asleep on stretcher very lethargic but arousable to name and sternal rub. unknown use of drugs at this time. pt given 8mg narcan nasally, arousable, waking up to name, answering questions appropriately, VSS, moved into ED room 18 and placed on desk monitor and end tidal. vital signs stable pt resting comfortably respirations even and unlabored. mold changer done by security and pt belongings placed in decon.
[2023-06-22 02:00] VITALS: PULSE 88; RESP 16
--- NOTE | 2023-06-22 02:50 | PC.NURSE ---
pt awake on stretcher, watching tv, speaking clear full sentences, talking to this RN abut how he wishes to stop drinking alcohol, has been in a 3 year [place] with detox, etc. This RN offered pt consult to care team, recover head coach for detox services but pt declined at this time. pt states my mom is picking me up at 0600 am, and i have a really good supportive girlfriend pt accepts pamphlets/phone numbers for detox services to be provided to him at time of discharge. on shelter monitor. sitter in place, pt has no current complaints
--- NOTE | 2023-06-22 03:08 | PC.NURSE ---
Assumed care of pt. Pt lying on stretcher, no acute distress at this time. VSS.
[2023-06-22] MEDS: Ondansetron ODT 4 MG TAB.RAPDIS TRANSLINGU (03:20)
--- NOTE | 2023-06-22 03:21 | PC.NURSE ---
Pt woke with vomiting. Medications ordered and administered with good effect.
[2023-06-22 05:09] VITALS: BP 111/70; PULSE 100; RESP 16; TEMP 37.2; O2SAT 91
== END 2023-06-22 06:38 | disposition home or self-care (01) ==
PROVIDERS: Emergency Provider Emergency Medicine; PCP Internal Medicine
DX: R41.82 Altered mental status, unspecified (principal); F17.210 Nicotine dependence, cigarettes, uncomplicated
CPT/HCPCS: 99283; 99284

== ENCOUNTER 2023-07-09 16:43 | Emergency (ER) | payer OTHER, SELFPAY ==
[2023-07-09 16:51] VITALS: BP 128/76; PULSE 112; O2SAT 97
[2023-07-09 16:57] VITALS: BP 109/61; PULSE 84; RESP 14; TEMP 36.7; O2SAT 97; BMI 22.1
--- NOTE | 2023-07-09 16:57 | ED.GENADULT ---
HPI - General Adult General Chief complaint: ETOH/Substance Use Stated complaint: FOUND UNRESPONSIVE,8MG NARCAN GIVEN Time Seen by Provider: 07/09/23 16:55 Source: patient and EMS Mode of arrival: EMS Limitations: no limitations History of Present Illness HPI narrative: Patient is a 22 year old assigned male at with no reported medical history presenting to the emergency department today after an accidental overdose. EMS states that the patient was found unresponsive, given Narcan, and awoke. Patient denies any drug use. Patient denies any dizziness, lightheadedness, abdominal pain, nausea, vomiting, fever, chills, blurry vision, double vision, loss of vision, chest pain, difficulty breathing, shortness of breath, back pain, night sweats, pain with urination, increased urinary frequency, increased urinary urgency, blood in his urine or stool, syncope or a near syncopal episode, recent trauma or falls, bowel incontinence, bladder incontinence, bowel retention, bladder retention, or any other complaints at this time. Relieving factors: none Exacerbating factors: none Associated symptoms: denies other symptoms Treatments prior to arrival: other (Narcan via PD) Related Data Previous Rx's Medication Instructions Recorded sulfamethoxazole 800 1 tab PO Q12H #14 tabs 04/01/23 mg-trimethoprim 160 mg tablet (Bactrim DS) acetaminophen 500 mg tablet 500 mg PO Q6H PRN fever or pain 05/14/23 #30 tabs amoxicillin 500 mg-potassium 1 tab PO BID #20 tabs 05/14/23 clavulanate 125 mg tablet (Augmentin) Allergies Allergy/AdvReac Type Severity Reaction Status Date / Time No Known Allergies Allergy Verified 05/14/23 01:30 Review of Systems Constitutional: Constitutional: Reports no additional constitutional complaints, Denies chills, Denies fever(s) and Denies night sweats Eyes: Eyes: Reports no additional eye complaints, Denies blurry vision, Denies change in vision, Denies diplopia, Denies eye discharge, Denies loss of vision and Denies eye pain ENT: Denies dizziness Cardiovascular: Cardiovascular: Reports no additional cardiovascular complaints, Denies chest pain, Denies lightheadedness, Denies Loss of Consciousness and Denies dyspnea Respiratory: Respiratory: Reports no additional respiratory complaints and Denies dyspnea Gastrointestinal: Gastrointestinal: Reports no additional gastrointestinal complaints, Denies abdominal pain, Denies melena, Denies hematochezia, Denies change in bowel habits and Denies change in stool character Genitourinary: Genitourinary: Reports no additional male genitourinary complaints, Denies hematuria, Denies oliguria, Denies difficulty urinating, Denies dysuria, Denies urinary frequency, Denies urinary hesitancy, Denies urinary incontinence and Denies urinary urgency Musculoskeletal: Musculoskeletal: Reports no additional musculoskeletal complaints, Denies numbness and Denies tingling Neurologic: Denies dizziness, Denies loss of vision, Denies numbness and Denies tingling Psychiatric: Psychiatric: Reports no additional psychiatric complaints Endocrine: Endocrine: Reports no additional endocrine complaints Hematologic/Lymphatic: Hematologic/Lymphatic: Reports no additional hematologic/lymphatic complaints Allergic/Immunologic: Allergic/Immunologic: Reports no additional allergic/immunologic complaints PMFSH Past Medical History Attestation statement: The following information was validated with the patient. Source: old records reviewed and nursing notes reviewed Medical History History of alcohol use Opiate use Surgical History H/O adenoidectomy Hx of tonsillectomy H/O hand surgery History of surgery on lower extremity S/P ear surgery Social History Social History Housing: House Alcohol intake: current Alcohol intake frequency: a few times a week Alcohol type: beer and hard liquor Patient Tobacco Use Status: Current everyday Tobacco user Cigarette Packs Per Day: 1 Smoked in Last 30 Days: No Use of substances other than those prescribed or required for medical reasons: No Substance Use Type: Heroin Advance Directives: No Advance Directives Information Provided: No service: No Current occupational status: unemployed Cognitive needs: No Hearing needs: No Vision needs: No Physical Exam ED Vital Signs: Vital Signs - 24 hr 07/09/23 16:57 07/09/23 18:26 Temperature 98.1 F 98.1 F Pulse Rate 84 100 Respiratory Rate 14 17 Blood Pressure 109/61 115/59 L Pulse Oximetry 97 98 Oxygen Delivery Method Room Air Room Air BMI result Body Mass Index 22.1 Const General: cooperative, no acute distress, alert and awake Nutritional Appearance: well nourished Orientation/consciousness: patient oriented x3 Limitations: no limitations HENMS Head: Yes normal to inspection and Yes atraumatic Ears: hearing grossly normal bilaterally and external ears normal General nose exam: Normal external nose present, no nasal discharge noted and no epistaxis Face and sinus: Yes normal facial exam, No abrasion and No laceration Mouth: Normal oral and palatal mucosa present, no drooling and no muffled voice Eyes General: appearance normal, both eyes and all related structures Periorbital: periorbital findings normal Eyelids: Yes eyelids normal Conjunctivae: conjunctivae normal Pupils: Equal, round and reactive pupils present EOM: EOMs intact bilaterally Neck Neck: Yes normal visual inspection, Yes full ROM and Yes no lymphadenopathy Chest Chest palpation & inspection: normal inspection of the chest Resp Effort & Inspection: normal respiratory effort and able to speak in complete sentences GI Inspection: Yes normal to inspection Neuro General: patient oriented x3 and moves all extremities Cranial nerves: Yes Equal, round and reactive pupils present Cognition (Neuro): normal cognition Motor exam (neuro): 5/5 motor strength present throughout Sensory Exam: Normal double simultaneous stimulation for sensation Coordination: [id number] test normal Extrem General: Yes normal to inspection, Yes full ROM and Yes capillary refill normal Psych Appearance: grossly normal Mental Status: mental status grossly normal Affect: normal affect Attitude: cooperative Thought process: Normal thought process present Thought content: Normal thought content present Insight: Good insight present (Psych) Medical Decision Making Medical Decision Making MDM Narrative: Patient is a 22 year old assigned male at with a history of opiate use presenting to the emergency department today after an accidental overdose. Patient's physical exam was unremarkable. Patient rested comfortably in the department and was monitored for 2 hours. Patient awoke and declined any addiction / recovery services. Patient requested discharge. I explained my physical exam findings to the patient. I answered all questions asked by the patient. Patient was given take home Narcan. I stressed the importance of the patient taking his medication as prescribed. I stressed the importance of the patient following up with his primary care provider. I stressed the importance of the patient returning to the emergency department immediately if his symptoms were to worsen or if he were to develop any dizziness, shortness of breath, difficulty breathing, chest pain, blurry vision, loss of vision, nausea, vomiting, abdominal pain, fever, chills, back pain, or any other complaints. Patient verbalized agreement and understanding with this treatment plan and discharge. Differential Diagnosis Differential Diagnoses: The differential diagnosis associated with the presentation includes Accidental overdose Opiate use Opiate abuse Admission/Observation Consideration of admission/observation: Escalation of care including admission/observation considered Patient would have been admitted to the hospital had his clinical presentation warranted hospital admission. Independent Historian Clinical information obtained from an independent historian. History obtained from or confirmed by: EMS (EMS provided additional history and confirmed the history provided by the patient.) Discharge Plan Discharge Clinical Impression: Opiate use Patient Disposition: Home, Self-Care Instructions: Opioid Use Disorder (ED) Additional Instructions: Follow up with your primary care provider. Return to the emergency department immediately if your symptoms worsen or if you develop any dizziness, shortness of breath, difficulty breathing, chest pain, blurry vision, loss of vision, nausea, vomiting, abdominal pain, fever, chills, back pain, or any other complaints. [facility]: [address] [place] [phone] Walk in hours from 10am - 12pm Open from 10am - 12pm [facility] Crisis Services: [address] [place] [address] Walk in hours from 10am - 12pm Open 27/12 Behavioral health Network: [address] [place] [address] [address] [place] [id number] Hours: M-F 8am to 8pm Tuesday and Tuesday 9am to 5pm Prescriptions: No Action amoxicillin-pot clavulanate [Augmentin] 500-125 mg tablet 1 tab PO BID Qty: 20 0RF acetaminophen 500 mg tablet 500 mg PO Q6H PRN (Reason: fever or pain) Qty: 30 0RF sulfamethoxazole-trimethoprim [Bactrim DS] 800-160 mg tablet 1 tab PO Q12H Qty: 14 0RF Referrals: [facility] [Provider Group] (Call to establish and follow up with a primary care provider. If you already have a primary care provider, please follow up with them.) [facility] Moraima Joe [Provider Group] (Call to establish and follow up with a primary care provider. If you already have a primary care provider, please follow up with them.) [facility] Primary Gerber Valdes [Provider Group] (Call to establish and follow up with a primary care provider. If you already have a primary care provider, please follow up with them.) Interventions: ED Discharge Assessment Last Done: 07/09/23 19:21 Discharge Date/Time: 07/09/23 19:22 Print Language: [place]ese
[2023-07-09 18:26] VITALS: BP 115/59; PULSE 100; RESP 17; TEMP 36.7; O2SAT 98
== END 2023-07-09 19:22 | disposition home or self-care (01) ==
PROVIDERS: Emergency Provider Emergency Medicine Emergency Medical Services
DX: F11.90 Opioid use, unspecified, uncomplicated (principal)
CPT/HCPCS: 99284

== ENCOUNTER 2023-07-21 15:32 | Emergency (ER) | payer OTHER, SELFPAY ==
[2023-07-21 15:38] VITALS: BP 126/69; PULSE 96; O2SAT 97
[2023-07-21 16:21] VITALS: BP 126/84; PULSE 84; RESP 16; TEMP 37; O2SAT 98; BMI 18.8
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
[2023-07-21 17:46] VITALS: BP 124/74; PULSE 94; RESP 18; TEMP 36.6; O2SAT 99
== END 2023-07-21 18:16 | disposition home or self-care (01) ==
PROVIDERS: Emergency Provider Internal Medicine; PCP Internal Medicine
DX: Z04.1 Encounter for examination and observation following transport accident (principal); T40.1X1A Poisoning by heroin, accidental (unintentional), initial encounter; R40.4 Transient alteration of awareness; Y92.810 Car as the place of occurrence of the external cause; F17.210 Nicotine dependence, cigarettes, uncomplicated
CPT/HCPCS: 99284; 99285

== ENCOUNTER 2023-07-28 12:45 | Outpatient (AMB) | payer OTHER, SELFPAY ==
[2023-07-28 12:58] VITALS: BP 122/66; PULSE 80; TEMP 36.7; O2SAT 98; BMI 22.7
--- NOTE | 2023-07-28 12:58 | MHC.OFFWIV ---
Intake Vital Signs 07/28/23 12:58 Height 5 ft 11 in Weight 163 lb BMI 22.7 BP 122/66 Blood Pressure Location Lt brachial Position Sitting Pulse 80 Pulse Source Pulse Oximeter Temp 98.1 F Temp Source Temporal Artery Scan Pulse Oximetry (%) 98 Oxygen Delivery Method Room Air Intake Visit Reasons: EP LT Ear Infection Intake Note: pt is here today for lft ear infection started 2 weeks ago Patient Tobacco Use Status: Current everyday Tobacco user Allergies No Known Allergies Allergy (Verified 07/28/23 12:59) Do you need a note to return to daycare/school/sports/work: No HPI HPI Comments History of Present Illness Details 22 male patient who presents to walk in clinic with c/o Left ear pain x 2 days. Recent URI infection that went away on its own. Denies fevers, chills, nausea or vomiting. Denies ringing of ears, but admits to hard to hear left side. Denies headaches. [facility] Medical History History of alcohol use Opiate use Surgical History H/O adenoidectomy Hx of tonsillectomy H/O hand surgery History of surgery on lower extremity S/P ear surgery Social History Housing: House Alcohol intake: current Alcohol intake frequency: a few times a week Alcohol type: other Patient Tobacco Use Status: Current everyday Tobacco user Cigarette Packs Per Day: 1 Substance Use Type: Heroin service: No Current occupational status: unemployed Cognitive needs: No Hearing needs: No Vision needs: No Review of Systems Const All systems reviewed & are unremarkable except as noted in HPI and below Physical Exam Vital Signs: Last Vital Signs Temp 98.1 F 07/28/23 12:58 Pulse 80 07/28/23 12:58 BP 122/66 07/28/23 12:58 Pulse Ox 98 07/28/23 12:58 Oxygen Delivery Method Room Air 07/28/23 12:58 BMI result Body Mass Index 22.7 Const General: comfortable and no acute distress HEENT Head: Yes normocephalic Ears: external ears normal and TM abnormal bulging, wth effusion, erythematous, with fluid behind the TM and with myringotomy tube present General nose exam: Normal external nose present and Abnormal mucous membranes and turbinates present boggy and erythematous Face and sinus: Yes sinuses nontender Mouth: moist mucous membranes Throat: Yes posterior oropharynx normal Resp Effort & Inspection: normal respiratory effort Auscultation: clear to auscultation bilaterally Cardio Rate: regular rate Rhythm: regular rhythm Assessment & Plan Assessment & Plan (1) Acute otalgia: Code(s): H92.09 - Otalgia, unspecified ear Qualifiers: Laterality: left Qualified Code(s): H92.02 - Otalgia, left ear Plan: - Acetaminophen for pain relief -Abx Otic as prescribed Medications: New acetaminophen 1,000 mg (2 x 500 mg) PO Q6H PRN 30 caps 0RF pain H92.02 - Otalgia, left ear ciprofloxacin-hydrocortisone 0.2-1 % (Cipro HC) 3 drps otic (ear) left BID 7 days 10 mL 0RF H92.02 - Otalgia, left ear Coding Level of Care Code Est Pt Level 3 (09969) Diagnoses Acute pain of left ear H92.02 Laterality: left Time Spent (min) 15
== END 2023-07-28 13:47 | disposition home or self-care (01) ==
PROVIDERS: PCP Internal Medicine; Visit Provider Nurse Practitioner Family
DX: H92.02 Otalgia, left ear (principal)
CPT/HCPCS: 99213

== ENCOUNTER 2023-10-01 20:26 | Emergency (ER) | payer OTHER, SELFPAY ==
[2023-10-01 20:42] VITALS: BP 113/70; PULSE 90; O2SAT 97
[2023-10-01 20:44] VITALS: BP 106/70; PULSE 89; RESP 16; TEMP 36.4; O2SAT 100; BMI 21.7
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
--- NOTE | 2023-10-01 21:05 | PC.NURSE ---
pt changed over by security, belongings in locker #7. Pt ambulated to BR with steady gait.
[2023-10-01 21:12] VITALS: BP 00/00; PULSE 0; RESP 0; TEMP -17.7; TEMP 0
== END 2023-10-01 21:14 | disposition home or self-care (01) ==
PROVIDERS: Emergency Provider Internal Medicine; PCP Internal Medicine
DX: F10.129 Alcohol abuse with intoxication, unspecified (principal); Y90.9 Presence of alcohol in blood, level not specified
CPT/HCPCS: 99282; 99284

== ENCOUNTER 2023-10-01 22:21 | Emergency (ER) | payer OTHER, SELFPAY ==
[2023-10-01 22:25] VITALS: BP 137/94; BP 146/100; PULSE 104; PULSE 122; RESP 20; O2SAT 96; BMI 23.6
[2023-10-01 22:35] VITALS: BP 137/94; PULSE 104; RESP 20; TEMP -17.7; TEMP 0; O2SAT 96
--- NOTE | 2023-10-01 22:35 | PC.NURSE ---
pt is axox4 ambulates with steady gait. resp even and unlabored. pt denies si/hi/drug use/alcohol use. pt reports he was just waiting for my mom on the sidewalk, I didn't use any drugs or alcohol since I left. 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 pt d/c to waiting room by Dr. Hopson as pt refusing to stay in ED. 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
--- NOTE | 2023-10-01 22:35 | ED.GENADULT ---
HPI - General Adult General Chief complaint: Behavioral Concerns Stated complaint: difficult to arouse, pin point pupils Time Seen by Provider: 10/01/23 22:34 Source: patient and EMS Mode of arrival: EMS History of Present Illness HPI narrative: Comes to the emergency room via ambulance. Patient was found on the street by police department. Patient was passed out, pinpoint pupils. Patient did not receive any Narcan Narcan, woke up immediately. Patient denies drug use. However, patient has been here in the ED multiple times for alcohol intoxication and drug overdose. Here in the ED, patient is awake, alert, patient is refusing any care, patient called his mother and it is coming to pick him up. Related Data Previous Rx's ?Medication ?Instructions ?Recorded acetaminophen 500 mg capsule 1,000 mg (2 x 500 mg) PO Q6H PRN 07/28/23 pain #30 caps ciprofloxacin 0.2 %-hydrocortisone 3 drp otic (ear) left BID 7 days 07/28/23 1 % ear drops,suspension (Cipro HC) #10 mL Allergies Allergy/AdvReac Type Severity Reaction Status Date / Time No Known Allergies Allergy Verified 10/01/23 22:28 Review of Systems Review of Systems: Constitutional : No Weight loss, No Fever, No Chills, No Night Sweats, No Fatigue, No Malaise ENT/Mouth : No Hearing loss, No Ear Pain, No Nasal Congestion, No Sinus Pain, No Hoarseness, No sore throat, No Rhinorrhea, No Swallowing Difficulty Eyes: No Eye Pain, No Swelling, No Redness, No Foreign Body, No Discharge, No Vision Changes Cardiovascular : No Chest Pain, No SOB, No Dyspnea on Exertion, No Orthopnea, No Edema, No Palpitations Respiratory : No Cough, No Sputum, No Wheezing, No Smoke Exposure, No Dyspnea Gastrointestinal : No Nausea, No Vomiting, No Diarrhea, No Constipation, No abdominal Pain, No Hematochezia, No Melena Genitourinary : no irregular bleeding, No Dysuria, No Urinary Frequency, No Hematuria, No Urinary Incontinence, No Urgency, No Flank Pain, No Urinary Flow Changes, No Hesitancy Musculoskeletal : No joint pain, No Myalgias, No Joint Swelling Skin : No Skin Lesions, No rash Neuro : No Weakness, No Numbness, No Paresthesias, No Loss of Consciousness, No Dizziness, No Headache Psych : Feeling anxious No Depression, No SI/HI/AH/VH, denies substance abuse Heme/Lymph: No Bruising, No Bleeding,No Lymphadenopathy Endocrine : No Polyuria, No Polydipsia, No Temperature Intolerance [facility] Past Medical History Medical History History of alcohol use Opiate use Surgical History H/O adenoidectomy Hx of tonsillectomy H/O hand surgery History of surgery on lower extremity S/P ear surgery Social History Social History Housing: House Alcohol intake: current Alcohol intake frequency: a few times a month Alcohol type: other Patient Tobacco Use Status: Current everyday Tobacco user Cigarette Packs Per Day: 1 Substance Use Type: Marijuana Advance Directives: No Advance Directives Information Provided: No Do you have a plan to hurt others: No Plan service: No Current occupational status: unemployed Cognitive needs: No Hearing needs: No Vision needs: No Physical Exam ED Vital Signs: BMI result Body Mass Index 23.6 Const Other: Appearance: Alert. Oriented X3. Acting a bit erratic but he is coherent, steady gait and unassisted Eyes: Pupils equal, round and reactive to light. ENT: Pharynx normal. Neck: Normal inspection. Neck supple. No lymph nodes noted. No crepitus CVS: Normal heart rate and rhythm. Pulses normal. Normal S1 and S2 Respiratory: No respiratory distress. Breath sounds normal. No Wheezing. No rales Abdomen: Soft and nontender. No rigidity. No distention. Skin: Skin warm and dry. Normal skin color. Normal skin turgor. Extremities: No lower extremity edema. No Lacerations. No Rash Neuro: Oriented X 3. No motor deficit. No sensory deficit. Moving all extremities. No slurred speech. CN 2 through 12 grossly intact Psych: calm, refuses any care but is okay getting vitals. Patient wants to be discharged Medical Decision Making Medical Decision Making MDM Narrative: -patient is awake, alert and oriented x3. Denies SI or HI. Patient is walking with steady gait. Although patient is acting a bit erratic, he still having coherent conversations. -it was confirmed by the patient's nurse that the patient called his mother and she is on her weight pick him up. Patient requesting to be discharged and he will wait for her in the waiting room. -vitals stable Discharge Plan Discharge Clinical Impression: Substance abuse Patient Disposition: Home, Self-Care Instructions: Polysubstance Abuse (ED) Additional Instructions: Please follow-up with your primary care physician tomorrow. If you have any worsening or new symptoms, please return to the emergency room or call 911 Prescriptions: No Action acetaminophen 500 mg capsule 1,000 mg PO Q6H PRN (Reason: pain) Qty: 30 0RF Cipro HC 0.2-1 % drops,suspension 3 drp otic (ear) left BID 7 Days Qty: 10 0RF Print Language: Mongolian
== END 2023-10-01 22:35 | disposition home or self-care (01) ==
PROVIDERS: Emergency Provider Emergency Medicine; PCP Internal Medicine
DX: F19.10 Other psychoactive substance abuse, uncomplicated (principal)
CPT/HCPCS: 99282

== ENCOUNTER 2024-05-09 10:56 | Emergency (ER) | payer OTHER, SELFPAY ==
[2024-05-09 11:03] VITALS: BP 116/82; PULSE 84; O2SAT 96
[2024-05-09 11:09] VITALS: BP 109/47; PULSE 89; RESP 18; TEMP 36.6; O2SAT 95; BMI 27.3
--- NOTE | 2024-05-09 11:32 | ED_ITS ---
HPI - Overdose General Chief Complaint: Overdose Stated Complaint: OD Time Seen by Provider: 05/09/24 11:31 Source: patient, EMS, RN notes reviewed and old records reviewed Mode of arrival: EMS History of Present Illness ED Provider: Tamara North PA-C HPI Narrative: 23-year-old male with a past medical history ETOH abuse, presenting to the ED via EMS s/p suspected heroin overdose [employer], patient given 2 mg of intranasal Narcan with positive affect. Patient denies using any illicit substances today. States he recently left rehab about 2 weeks ago and relapsed. Denies ETOH use. Denies known injury, trauma or fall. MD complaint: accidental overdose Related Data Previous Rx's ?Medication ?Instructions ?Recorded acetaminophen 500 mg capsule 1,000 mg (2 x 500 mg) PO Q6H PRN 07/28/23 pain #30 caps ciprofloxacin 0.2 %-hydrocortisone 3 drp otic (ear) left BID 7 days 07/28/23 1 % ear drops,suspension (Cipro HC) #10 mL Allergies Allergy/AdvReac Type Severity Reaction Status Date / Time No Known Allergies Allergy Verified 05/09/24 11:13 Review of Systems Review of Systems: Yes all other systems are reviewed and are negative Constitutional: Constitutional: Reports as per [facility] Past Medical History Attestation statement: The following information was validated with the patient. Source: old records reviewed Medical History History of alcohol use Opiate use Surgical History H/O adenoidectomy Hx of tonsillectomy H/O hand surgery History of surgery on lower extremity S/P ear surgery Social History Social History Housing: House Alcohol intake: current Alcohol intake frequency: 0-2 drinks per day Alcohol type: other Patient Tobacco Use Status: Current everyday Tobacco user Cigarette Packs Per Day: 1 Smoked in Last 30 Days: Yes Use of substances other than those prescribed or required for medical reasons: Refusing to respond Substance Use Type: Marijuana Advance Directives: No service: No Current occupational status: unemployed Cognitive needs: No Hearing needs: No Vision needs: No Physical Exam Vital Signs: Vital Signs: Last Vital Signs Temp 96.6 F L 05/09/24 13:31 Pulse 88 05/09/24 13:31 Resp 18 05/09/24 13:31 BP 103/59 L 05/09/24 13:31 Pulse Ox 94 05/09/24 13:31 O2 Del Method Room Air 05/09/24 13:31 BMI result Body Mass Index 27.3 Const: Other: Sleepy but easily arousable. Appears under the influence General: cooperative and no acute distress Orientation/consciousness: patient oriented x3 Limitations: no limitations HEENT: Head: Yes normal to inspection and Yes atraumatic Ears: hearing grossly normal bilaterally General nose exam: Normal external nose present Face and sinus: Yes normal facial exam Eyes: General: appearance normal, both eyes and all related structures EOM: EOMs intact bilaterally Neck: Neck: Yes normal visual inspection and Yes no meningeal signs Resp: Effort & Inspection: normal respiratory effort and no respiratory distress Auscultation: clear to auscultation bilaterally Cardio: Rate: regular rate Heart sounds: S1 normal heart sound present and S2 normal heart sound present Skin: Rashes: no rashes Wounds: no wounds Neuro: General: patient oriented x3, tone normal, no meningeal signs and CN's II-XI intact bilaterally Cranial nerves: Yes CN's II-XII intact bilaterally Extrem: General: Yes normal to inspection Course Course Course Narrative: - tox screen positive for opiates, fentanyl, THC > parents filed section 35 on patient, patient will be discharged to police custody Medical Decision Making Medical Decision Making [facility] Narrative: 23-year-old male with a past medical history ETOH abuse, presenting to the ED via EMS s/p suspected heroin overdose [employer], patient given 2 mg of intranasal Narcan with positive affect. on exam vital signs stable, NAD, lethargic /appears under the influence, nodding off during evaluation, easily arousable to voice. Maintaining airway. Concern for accidental overdose. No evidence of trauma Plan: OSORIO, observe and re-evaluate for clinical sobriety. Please refer to course for remaining clinical decision making, interpretation of labs/imaging results, and discussions with consultants and/or family members. Differential Diagnosis Differential Diagnoses: The differential diagnosis associated with the presentation includes As above Consult Healthcare Provider Management of the patient was discussed with: Behavioral Health Provider Lab Data MDM Lab Attestation statement: I reviewed the patient's lab results. Labs: Lab Results 12/04/24 Range/Units 12:51 Urine Opiates Screen POSITIVE H (Not Detect) Ur Buprenorphine Scrn Not Detected (Not Detect) ng/mL Ur Oxycodone Screen Not Detected (Not Detect) ng/mL Urine Methadone Screen Not Detected (Not Detect) ng/mL Urine Fentanyl Screen POSITIVE H (Not Detect) Ur Barbiturates Screen Not Detected (Not Detect) Ur Phencyclidine Scrn Not Detected (Not Detect) Ur Amphetamines Screen Not Detected (Not Detect) U Benzodiazepines Scrn Not Detected (Not Detect) Urine Cocaine Screen Not Detected (Not Detect) U Marijuana (THC) Screen POSITIVE H (Not Detect) Independent Historian Clinical information obtained from an independent historian. History obtained from or confirmed by: EMS External Record Review External record reviewed: Inpatient record, Office record, Outpatient record, Prior outpatient labs, Prior outpatient radiology, Primary care record and Outside ED record Tests considered The following testing was considered but not selected: As above Chronic Conditions Patient?s care impacted by: Other Social Determinants Patient?s care significantly limited by Social Determinants of Health including: Inadequate housing, Low income, Alcoholism and drug addiction in family, Problems related to primary support group, Problems related to employment and Other Social Determinant of Health Discharge Plan Discharge Clinical Impression: Drug overdose Patient Disposition: Home, Self-Care Instructions: Adult Overdose (ED) Additional Instructions: your tox screen was positive for opiates, fentanyl, marijuana Please avoid alcohol and drug use You are being discharged with Narcan to go home Consider detox Prescriptions: No Action acetaminophen 500 mg capsule 1,000 mg PO Q6H PRN (Reason: pain) Qty: 30 0RF Cipro HC 0.2-1 % drops,suspension 3 drp otic (ear) left BID 7 Days Qty: 10 0RF Referrals: Shiloh Ellis, SONI [Nurse Practitioner] - Interventions: ED Discharge Assessment Last Done: 05/09/24 13:31 Discharge Date/Time: 05/09/24 13:34 Print Language: Upper Sorbian
--- NOTE | 2024-05-09 12:38 | PC.NURSE ---
Per [employer], they have a sect 35 for this patient and is requesting a call is he is d/c
[2024-05-09 12:51] VITALS: BP 103/59; PULSE 88; RESP 13; TEMP 35.9; O2SAT 94
[2024-05-09 13:07] LABS: Amphetamine Screen Urine Not Detected (Not Detect); Barbiturates, Urine Not Detected (Not Detect); Benzodiazepines Screen Urine Not Detected (Not Detect); Buprenorphine Scr Not Detected (Not Detect); Cannabinoid Screen Urine POSITIVE (Not Detect); Cocaine Screen Urine Not Detected (Not Detect); Fentanyl, urine POSITIVE (Not Detect); Methadone Screen, Urine Not Detected (Not Detect); Opiate Screen Urine POSITIVE (Not Detect); Oxycodone Screen Urine Not Detected (Not Detect); Phencyclidine Screen Urine Not Detected (Not Detect)
--- NOTE | 2024-05-09 13:27 | PC.NURSE ---
[employer] HERE TO PICK PT UP FOR SECTION 35
[2024-05-09 13:31] VITALS: BP 103/59; PULSE 88; RESP 18; TEMP 35.9; O2SAT 94
--- NOTE | 2024-05-09 13:39 | HO.SUDE ---
Pt dc on Sect 35 prior to completing SUDE.
== END 2024-05-09 13:34 | disposition home or self-care (01) ==
PROVIDERS: Physician Assistant; Emergency Provider Emergency Medicine
DX: T50.901A Poisoning by unspecified drugs, medicaments and biological substances, accidental (unintentional), initial encounter (principal); Y92.9 Unspecified place or not applicable; F10.10 Alcohol abuse, uncomplicated; Y90.9 Presence of alcohol in blood, level not specified; F17.210 Nicotine dependence, cigarettes, uncomplicated; Z79.899 Other long term (current) drug therapy
CPT/HCPCS: 80307; 99285